=== PATIENT | female | born 1980 | race Caucasian/White ===

== ENCOUNTER 2017-08-09 15:16 | Observation (INO) | payer OTHER ==
[2017-08-09] MEDS ORDERED: Albuterol 2.5 MG/3 ML NEB.SOL* (0.083%) ONE (15:27)
[2017-08-09] MEDS ORDERED: diPHENhydraMINE IV* 50 MG/ML 1 ml VIAL (BENADRYL) ONE (15:50)
[2017-08-09] MEDS ORDERED: EPINEPHRINE 1 MG/ML 1 ML VIAL ONE (15:50)
[2017-08-09] MEDS ORDERED: methylPREDNISolone 125 MG* 2 ML VIAL ONE (15:50)
[2017-08-09] MEDS ORDERED: Famotidine IV* 10 MG/ML 2 ML (20 mg) ONE (15:50)
[2017-08-09] MEDS ORDERED: EPINEPHrine,Rac 2.25% NEB.SOL* 0.5 ML ONE (15:51)
[2017-08-09] MEDS ORDERED: methylPREDNISolone 125 MG* 2 ML VIAL IV ONE (16:41)
[2017-08-09] MEDS ORDERED: Albuterol 2.5 MG/3 ML NEB.SOL* (0.083%) INH ONE (16:41)
[2017-08-09] MEDS ORDERED: Famotidine IV* 10 MG/ML 2 ML (20 mg) IV SLOW PU ONE (16:41)
[2017-08-09] MEDS ORDERED: diPHENhydraMINE PO* 50 MG PO ONE (16:41)
[2017-08-09] MEDS ORDERED: EPINEPHrine,Rac 2.25% NEB.SOL* 0.5 ML INH ONE (16:42)
[2017-08-09] MEDS ORDERED: EPINEPHrine AMP 1 MG/ML SUBCUT ONE (16:42)
[2017-08-09] MEDS ORDERED: Acetaminophen TAB* 325 MG PO PRN (17:02)
[2017-08-09] MEDS ORDERED: diPHENhydraMINE PO* 50 MG PO PRN (17:02)
[2017-08-09] MEDS ORDERED: Albuterol 2.5 MG/3 ML NEB.SOL* (0.083%) INH PRN (17:02)
[2017-08-09] MEDS ORDERED: NS 0.9% 1000 ML* 1,000 ML IV ONE ×2 (17:02→19:22)
[2017-08-09] MEDS ORDERED: Ondansetron INJ* 2 MG/ML VIAL IV PRN (17:02)
[2017-08-09] MEDS ORDERED: NS 0.9% 1000 ML* 1,000 ML IV SCH (17:15)
[2017-08-09 17:32] LABS: ABS Basophils 0.1 10^3/ul (0-0.2); ABS Eosinophils 0.1 10^3/ul (0-0.6); ABS Lymphocytes 2.4 10^3/ul (1.0-4.8); ABS Monocytes 0.6 10^3/ul (0-0.8); ABS Neutrophils 17.1 10^3/ul (1.5-7.7); ABS Nucleated RBC 0 10^3/ul; Eosinophil % 0.4 % (0-6); Hematocrit 38 % (35-47); Hemoglobin 12.8 g/dl (12.0-16.0); Lymphocyte % 11.8 % (25-47); Mean Corpuscular HGB Conc 34 g/dl (31-36); Mean Corpuscular Hemoglobin 30 pg (27-31); Mean Corpuscular Volume 89 fL (80-97); Mean Platelet Volume 8 um3 (7.4-10.4); Nucleated Red Blood Cells % 0; Platelet Count 332 10^3/ul (150-450); Red Blood Count 4.23 10^6/ul (4.0-5.4); Red Cell Distribution Width 13 % (10.5-15); White Blood Count 20.3 10^3/ul (3.5-10.8)
[2017-08-09] MEDS: Cetirizine* 10 MG TAB PO SCH (17:34)
[2017-08-09 17:49] LABS: EGFR Non-African American 78.9 (>60)
[2017-08-09] MEDS ORDERED: LORazepam TAB(*) 0.5 MG PO ONE (20:25)
[2017-08-09] MEDS ORDERED: LORazepam INJ* 2 MG/ML 1 ML VIAL IV PUSH ONE (20:28)
[2017-08-09] MEDS ORDERED: LORazepam INJ* 2 MG/ML 1 ML VIAL ONE (20:41)
--- NOTE | 2017-08-09 20:51 | RAD ---
HISTORY: Tachycardia COMPARISONS: None VIEWS: 1: frontal portable view of the chest at 8:41 PM FINDINGS: LINES AND TUBES: None. CARDIOMEDIASTINAL SILHOUETTE: The cardiomediastinal silhouette is normal for portable technique. PLEURA: The costophrenic angles are sharp. No pleural abnormalities are noted. LUNG PARENCHYMA: The lungs are clear. ABDOMEN: The upper abdomen is clear. There is no subphrenic gas. BONES AND SOFT TISSUES: No bone or soft tissue abnormalities are noted. IMPRESSION: NO ACTIVE CARDIOPULMONARY DISEASE.
[2017-08-09] MEDS: predniSONE TAB* 20 MG PO SCH (22:35)
[2017-08-09] MEDS: Famotidine IV* 10 MG/ML 2 ML (20 mg) IV SLOW PU SCH (22:36)
[2017-08-09 23:18] LABS: Urine Appearance Clear; Urine Blood Negative (Negative); Urine Color Colorless; Urine Ketones Negative (Negative); Urine Protein Negative (Negative); Urine Specific Gravity 1.004 (1.010-1.030); Urine Urobilinogen Negative (Negative)
--- NOTE | 2017-08-09 23:55 | HP ---
CC: Dr. Mello * HISTORY AND PHYSICAL: DATE OF ADMISSION: 08/09/17 PRIMARY CARE PROVIDER: Dr. Mello. ATTENDING PHYSICIAN WHILE IN THE HOSPITAL: Dr. Martha Johnson * (report dictated by Coleman Silva NP). CHIEF COMPLAINT: 1. Allergic reaction. 2. Shortness of breath. 3. Itching in throat and mouth. HISTORY OF PRESENT ILLNESS: Mrs. Lester is a 37-year-old female patient, who really has no other medical history. She states she has a history of may be seasonal asthma. She comes into the ER today. She says that she was seen at Dr. Garcia's office for allergy testing on Thursday this past week. She was tested there. According to the patient, she had a reaction to the skin test. She was told she had high reactivity to cucumbers, green peppers, peanuts and soy. She received 4 rounds of epinephrine according to the patient. She also received prednisone and Benadryl. The reaction was abated. She was given an additional dose to take of prednisone and she was sent home and this weekend she was working on removing the offending agents that she was told that she had high sensitivity to. She today was noted to be taking a shower and right after taking the shower, she started having itchiness in the lips, in the tongue. She took a Benadryl and an inhaler 20 minutes into this sensation. She started having shortness of breath feeling like that she could not breathe. She was concerned and told her and they came into the hospital. She said she was starting having difficulty breathing. She was noticing she was starting to have a wheeze. She is not really sure what she was having the reaction to. She thinks it may have been the soap. She says the soap may have had some soy products in it. She is not 100% sure. She came into the ED. She received albuterol, epinephrine racemic epinephrine as there was concern for stridor. She got Pepcid, steroids as well and the reaction seemed to have improved significantly with these interventions. She said she is feeling better now. She denies any chest pain. She denies feeling short of breath. She denies having any palpitations. No chest pain. She said she had no recent fevers or chills and she denied having any recent vomiting or diarrhea. Because of the reaction and the fact that she had stridor, we were asked to evaluate for admission. PAST MEDICAL HISTORY: She says is significant for asthma, which is seasonal. PAST SURGICAL HISTORY: She has had eustachian tubes placed. HOME MEDICATIONS: Include: 1. Benadryl 25 mg every 6 hours as needed. 2. B12 500 mcg daily. 3. Vitamin D 1000 units p.o. daily. 4. vitamin 1 tablet p.o. daily. 5. Probiotic 1 capsule p.o. daily. ALLERGIES: Include BEES, CUCUMBERS, GREEN PEPPERS, PEANUTS and SOY. FAMILY HISTORY: Reviewed and is noncontributory. She said that her parents to her knowledge were healthy. SOCIAL HISTORY: She does not smoke. She does drink, it is occasionally. Surrogate decision maker is her . REVIEW OF SYSTEMS: There is no documented fever. She denied any significant weight change. There was no double vision, no ear discharge. She denied having any rhinorrhea. There was no sore throat. No thyroid enlargement. She denied having any chest pain. There was shortness of breath per my HPI. There was no abdominal pain, no nausea, no vomiting. There is no dysuria. There was no frequency. There was no seizure, no loss of consciousness, no pruritus and no skin ulceration. Review of 14 systems completed, all others negative. PHYSICAL EXAMINATION GENERAL: Ms. Lester is a 37-year-old female patient. She is sitting in the ED stretcher. She does not appear to be in any acute distress. She is awake and she is alert. VITAL SIGNS: Blood pressure 145/71 with a pulse of 149, respirations when she came in were 30, they are now 18. Her O2 saturations are 100%, heart rate now is still at 140 and the temperature was 99.3. HEENT: Head: Atraumatic, normocephalic. Eyes: EOMs are intact. Sclerae anicteric and not pale. Throat: Oral mucosa appears to be moist. No oropharyngeal erythema. NECK: Supple. LUNGS: Clear to auscultation bilaterally. No wheezes, rales, or rhonchi. She had no stridor. HEART: Sounds S1, S2. She is tachycardic. ABDOMEN: Soft, it was flat and nontender. Bowel sounds were present. EXTREMITIES: Pulses were 2+ throughout. She is moving all 4 extremities with 5 /5 strength. NEUROLOGIC: She is awake, alert, oriented x3. Speech is clear. Tongue midline. No gross focal deficits. SKIN: Intact. DIAGNOSTIC STUDIES/LAB DATA: Labs are pending at this point. She did have an EKG obtained today, shows a heart rate of 144. She had diffuse ST depression. No ST elevation was noted. Old medical records were reviewed. ASSESSMENT AND PLAN: Mrs. Lester is a 37-year-old female patient coming in to the ED today with complaints of lip itching and mouth itching, difficulty breathing, on evaluation concern for allergic reaction, also was found to have stridor. She will be admitted under observation status for: 1. Allergic reaction. Etiology is unclear. The exact culprit and why she had the reaction is unclear at this point. The plan would be to go ahead and continue steroids, p.r.n. Benadryl. I will put her on Pepcid. In addition to that, I will place her on Zyrtec. Should she have another reaction or recurrent stridor, I will get ENT involved and I also will give her epinephrine. We will continue to follow and she will need close followup with Dr. Garcia's office. I would like to try to get the records from Dr. Garcia's office as well to see his impression with the patient's last clinical visit. 2. Tachycardia. This is probably related to the epinephrine and racemic epinephrine given here in the ED. I am going to go ahead and hydrate the patient. I am checking a CMP. I also will get a CBC. We are checking a TSH and we will continue to follow. I do note that she had ST depression on her EKG and this is probably from the rate. She is not having any chest pain currently. So, we will go ahead and just monitor this, I am placing her in the ICU. We will follow the heart rate. 3. DVT prophylaxis. We will place her on SCDs. 4. Code status. Full code. 5. Fluids, electrolytes, and nutrition. I am ordering a clear liquid diet for the time being. TIME SPENT: Time spent on admission was 60 minutes, greater than half time was spent [id number] with the patient obtaining my history and physical, the other half time was spent going over the plan of care of the patient and implementing the plan of care. I did discuss the plan of care with my attending, Dr. Johnson, she is in agreement. COLEMAN SILVA NP [id number]/CPS #: [id number] MTDD
[2017-08-10 06:24] LABS: Hematocrit 36 % (35-47); Hemoglobin 12.8 g/dl (12.0-16.0); Mean Corpuscular HGB Conc 35 g/dl (31-36); Mean Corpuscular Hemoglobin 31 pg (27-31); Mean Corpuscular Volume 88 fL (80-97); Mean Platelet Volume 8 um3 (7.4-10.4); Platelet Count 298 10^3/ul (150-450); Red Blood Count 4.12 10^6/ul (4.0-5.4); Red Cell Distribution Width 13 % (10.5-15); White Blood Count 9.8 10^3/ul (3.5-10.8)
[2017-08-10 06:30] LABS: ABS Basophils 0.1 10^3/ul (0-0.2); ABS Eosinophils 0 10^3/ul (0-0.6); ABS Lymphocytes 0.7 10^3/ul (1.0-4.8); ABS Monocytes 0.3 10^3/ul (0-0.8); ABS Neutrophils 8.7 10^3/ul (1.5-7.7); ABS Nucleated RBC 0 10^3/ul; Eosinophil % 0 % (0-6); Lymphocyte % 7.3 % (25-47); Nucleated Red Blood Cells % 0
[2017-08-10] MEDS ORDERED: Potassium Chloride IV* 60 MEQ in NS 0.9% 500 ML* 500 ML IVPB ONE (09:00)
[2017-08-10] MEDS ORDERED: Cetirizine* 10 MG TAB PO SCH (09:00)
[2017-08-10] MEDS ORDERED: KCL 20 MEQ/100 ML IVPREMIX* 20 MEQ/100 ML BAG IV SCH (09:00)
[2017-08-10] MEDS: Famotidine IV* 10 MG/ML 2 ML (20 mg) IV SLOW PU SCH ×2 (09:20→20:38)
[2017-08-10] MEDS: Cetirizine* 10 MG TAB PO SCH (09:20)
[2017-08-10] MEDS: predniSONE TAB* 20 MG PO SCH (09:20)
[2017-08-10] MEDS ORDERED: Magnesium Sulfate 2 GM IV* 2 GM/50 ML BAG IVPB ONE ×2 (10:47→22:00)
[2017-08-10 11:30] LABS: EGFR Non-African American 94.7 (>60)
--- NOTE | 2017-08-10 12:13 | ED ---
Shelby Mendosa Jason, scribed for Casper Hardy MD on 08/09/17 at 1531 . Allergic Reaction/Systemic - HPI Summary HPI Summary: This patient is a 37 year old F presenting to [facility] with a chief complaint of allergic reaction since today. The patient states she had recently gone for allergy testing 2 days ago and was told that she is most severely allergic to soy beans and peanuts and today she accidentally used soy mon soap. Pt noted lip tingling and SOB and took 50mg Benadryl PO at 1500. She was also given prednisone for two days but did not have any for today. The patient rates the pain 0/10 in severity. Symptoms aggravated by nothing. Symptoms alleviated by nothing. Patient reports tingling lips, tongue feels funny, coughing, and wheezing. - History of Current Complaint Hx Obtained From: Patient Onset/Duration: Sudden Onset, Still Present Timing: Constant Pain Intensity: 0 Pain Scale Used: 0-10 Numeric Aggravating Factor(s): Nothing Alleviating Factor(s): Nothing Associated Signs And Symptoms: Positive: Cough Wheezing, Difficulty Breathing - Allergies/Home Medications Allergies/Adverse Reactions: Allergies Allergy/AdvReac Type Severity Reaction Status Date / Time bee pollen Allergy Anaphylatic Verified 08/09/17 15:27 Shock cucumber Allergy See Comment Verified 08/09/17 15:27 green pepper Allergy See Comment Verified 08/09/17 15:27 peanut Allergy See Comment Verified 08/09/17 15:27 soy Allergy Difficulty Verified 08/09/17 15:27 Breathing/Wheezing Home Medications: Home Medications Cholecalciferol TAB* [Vitamin D TAB*] 1,000 unit PO DAILY 08/09/17 [History Confirmed 08/09/17] Cyanocobalamin TAB* [Vitamin B12 TAB*] 500 mcg PO DAILY 08/09/17 [History Confirmed 08/09/17] L.acidoph,Paracasei, B.lactis [Probiotic] 1 each PO DAILY 08/09/17 [History Confirmed 08/09/17] Vitamin TAB* 1 tab PO DAILY 08/09/17 [History Confirmed 08/09/17] diPHENhydraMINE PO* [Benadryl PO 25 MG TAB*] 25 mg PO Q6H PRN 08/09/17 [History Confirmed 08/09/17] PMH/Surg Hx/FS Hx/Imm Hx Previously Healthy: Yes Opthamlomology History: Denies: Hx Legally Blind EENT History: Denies: Hx Deafness Infectious Disease History: No Infectious Disease History: Denies: Traveled Outside the [place] in Last 30 Days - Family History Known Family History: Negative: Blood Disorder - Social History Occupation: Employed Full-time Lives: With Family Substance Use Type: Reports: None Review of Systems ENT: Other - "tingling lips and tongue feels funny" Positive: Shortness Of Breath, Cough, Other - wheezing All Other Systems Reviewed And Are Negative: Yes Physical Exam - Summary Physical Exam Summary: Appearance: The patient is well-nourished in no acute distress and in no acute pain. Skin: The skin is warm and dry and skin color reflects adequate perfusion. HEENT: ~The head is normocephalic and atraumatic. The pupils are equal and reactive. The conjunctivae are clear and without drainage. ~Nares are patent and without drainage. Mouth reveals moist mucous membranes and the throat is without erythema and exudate. The external ears are intact. The ear canals are patent and without drainage. The tympanic membranes are intact. Neck: the neck is supple with full range of motion and non-tender. There are no carotid bruits. ~There is no neck vein distension. Slight erythema in the anterior neck. Respiratory: Chest is non-tender. Tachypnic, Expiratory wheezes, Phonate with inspiration. Cardiovascular: Tachycardic. ~There is no murmur or rub auscultated. ~There is no peripheral edema and pulses are symmetrical and equal. Abdomen: The abdomen is soft and non-tender. ~There are normal bowel sounds heard in all four quadrants and there is no organomegaly palpated. Musculoskeletal: There is no back tenderness noted. ~Extremities are non-tender with full range of motion. ~There is good capillary refill. There is no peripheral edema or calf tenderness elicited. Neurological: Patient is alert and oriented to person, place and time. ~The patient has symmetrical motor strength in all four extremities. ~Cranial nerves are grossly intact. Deep tendon reflexes are symmetrical and equal in all four extremities. Psychiatric: The patient has an appropriate affect and does not exhibit any anxiety or depression. Triage Information Reviewed: Yes Vital Signs On Initial Exam: Initial Vitals Temp Pulse Resp BP Pulse Ox 99.3 F 118 26 131/82 100 08/09/17 15:21 08/09/17 15:21 08/09/17 15:21 08/09/17 15:21 08/09/17 15:21 Vital Signs Reviewed: Yes Diagnostics - Vital Signs Vital Signs Temp Pulse Resp BP Pulse Ox 08/09/17 15:21 99.3 F 118 26 131/82 100 - Laboratory Result Diagrams: 08/10/17 05:03 08/10/17 10:45 Lab Statement: Any lab studies that have been ordered have been reviewed, and results considered in the medical decision making process. - EKG 1606 Cardiac Rate: Tachycardia EKG Rhythm: Sinus Tachycardia - 144 bpm Re-Evaluation - Re-Evaluation First Eval Re-Evaluation Time: 15:50 Change: Worse - patient's condition worsened after her symptoms returned 15 minutes following a breathing treatment. The patient was given a breathing treatment. Second Eval Re-Evaluation Time: 16:05 Change: Improved - the patient is calm and there is no wheezing or stridor. Patient is tachycardic Allergic Reaction Course/Dx - Course Course Of Treatment: Ms. Lester presented feeling SOB and that her throat was closing off and itching. She saw Dr. Garcia two days ago for skin testing for allergies and apparently reacted to different things. According to her and her , she had to be given epi three times and one of them was a double dose. She was also given steroids and D/C'd with an additional dose of prednisone which she took yesterday. She tried to get all the wheat and soy products out of the house but after she took a shower today, she started to have an itchy throat and noted that the shampoo had soy in it. She started to get SOB and they came in after taking a benadryl. When I saw her she was very anxious, clawing at her throat and phonating with inspirations and expirations. She clearly had some expiratory wheezes but I was not convicned that she had stridor. I gave her an albuterol neb which helped but shortly after, it recurred. She was then given epi SQ, vaponephrine, and IV pepcid, benadryl and solumedrol. During the second attack, her heart rate was in the 170s (after albuterol) and after the second attack, she improved and felt better and her heart rate decreased to the 130s. At that point, I could not hear wheezes or stridor even with significant intakes of breath. I'm not sure how much of this was physiologic (clearly some) and how much was her anxiety about it. I asked the hospitalists to evaluate her for observation. - Diagnoses Provider Diagnoses: Allergic reaction - Provider Notifications Discussed Care Of Patient With: Jordan Jackson - discussed patient's condition Time Discussed With Above Provider: 16:21 - Critical Care Time Critical Care Time: 30-74 min Discharge - Discharge Plan Condition: Fair Disposition: ADMITTED TO [facility] Discharge Disposition Comment: Pt was admitted by Dr. Johnson The documentation as recorded by the Shelby hickman Jason accurately reflects the service I personally performed and the decisions made by me, Casper Hardy MD.
[2017-08-10] MEDS ORDERED: Potassium Chloride IV* 20 MEQ in NS 0.9% 100 ML* 100 ML IVPB ONE (15:00)
--- NOTE | 2017-08-10 15:57 | PN ---
Subjective Date of Service: 08/10/17 Interval History: Tmax 101.4 Transferred out of ICU. tachycardia persists. electrolytes repleted. diet advanced. no lip or tongue swelling. no wheezing. recent outpatient work up for autoimmune/connective tissue disorders after developed hexagonal raised rash on back of b/l thighs Tachycardic to 130s with ambulation and light headed. leukocytosis resolved. Denies dysuria, frequency, SOB. Objective Active Medications: Acetaminophen (Tylenol Tab*) 650 mg PO Q4H PRN PRN Reason: FEVER/PAIN Last Admin: 08/09/17 20:31 Dose: 650 mg Albuterol (Ventolin 2.5 Mg/3 Ml Neb.[place]*) 2.5 mg INH Q2H PRN PRN Reason: SOB/WHEEZING Cetirizine HCl (Zyrtec*) 10 mg PO DAILY [facility] PRN Reason: Protocol Last Admin: 08/10/17 09:20 Dose: 10 mg Diphenhydramine HCl (Benadryl Po*) 50 mg PO Q6H PRN PRN Reason: ITCHING Last Admin: 08/10/17 04:02 Dose: 50 mg Famotidine (Pepcid Iv*) 20 mg IV SLOW PU BID [facility] Last Admin: 08/10/17 09:20 Dose: 20 mg Sodium Chloride (Ns 0.9% 1000 Ml*) 1,000 mls @ 125 mls/hr IV PER RATE [facility] Last Admin: 08/09/17 18:04 Dose: 125 mls/hr Potassium Chloride 20 meq/ (Sodium Chloride) 110 mls @ 55 mls/hr IVPB ONCE ONE Stop: 08/10/17 16:59 Ondansetron HCl (Zofran Inj*) 4 mg IV Q6H PRN PRN Reason: NAUSEA Prednisone (Deltasone Tab*) 60 mg PO DAILY [facility] Last Admin: 08/10/17 09:20 Dose: 60 mg Vital Signs - 8 hr 08/10/17 08/10/17 08/10/17 08:00 08:15 08:30 Temperature Pulse Rate 104 105 127 Respiratory 20 23 17 Rate Blood Pressure 113/69 109/71 121/67 (mmHg) O2 Sat by Pulse 97 97 97 Oximetry 08/10/17 08/10/17 08/10/17 08:45 09:00 09:16 Temperature Pulse Rate 101 124 104 Respiratory 25 20 19 Rate Blood Pressure 109/62 110/69 112/71 (mmHg) O2 Sat by Pulse 97 98 98 Oximetry 08/10/17 08/10/17 08/10/17 09:31 09:45 10:00 Temperature Pulse Rate 107 111 Respiratory 15 18 19 Rate Blood Pressure 129/76 109/81 (mmHg) O2 Sat by Pulse 98 98 Oximetry 08/10/17 08/10/17 08/10/17 10:30 10:31 14:46 Temperature 98.6 F 98.6 F 98.5 F Pulse Rate 112 120 108 Respiratory 16 16 Rate Blood Pressure 125/86 125/96 114/72 (mmHg) O2 Sat by Pulse 100 98 99 Oximetry 08/10/17 14:47 Temperature Pulse Rate 106 Respiratory Rate Blood Pressure 114/77 (mmHg) O2 Sat by Pulse Oximetry Oxygen Devices in Use Now: None Appearance: NAD, sitting up in hospital bed. Eyes: No Scleral Icterus, PERRLA Ears/Nose/Mouth/Throat: NL Teeth, Lips, Gums, Mucous Membranes Moist Neck: NL Appearance and Movements; NL JVP Respiratory: Symmetrical Chest Expansion and Respiratory Effort, Clear to Auscultation Cardiovascular: NL Sounds; No Murmurs; No JVD, - - tachycardic Abdominal: NL Sounds; No Tenderness; No Distention Extremities: No Edema, No Clubbing, Cyanosis Skin: No Rash or Ulcers, No Nodules or Sclerosis Neurological: Alert and Oriented x 3, NL Sensation, NL Muscle Strength and Tone Nutrition: Taking PO's Result Diagrams: 08/10/17 05:03 08/10/17 10:45 Additional Lab and Data: Laboratory Results - last 24 hr 08/09/17 08/09/17 08/09/17 17:20 17:20 21:27 WBC 20.3 H RBC 4.23 Hgb 12.8 Hct 38 MCV 89 MCH 30 MCHC 34 RDW 13 Plt Count 332 MPV 8 Neut % (Auto) 84.3 H Lymph % (Auto) 11.8 L [place] % (Auto) 3.0 Eos % (Auto) 0.4 Baso % (Auto) 0.5 Absolute Neuts (auto) 17.1 H Absolute Lymphs (auto) 2.4 Absolute Monos (auto) 0.6 Absolute Eos (auto) 0.1 Absolute Basos (auto) 0.1 Absolute Nucleated RBC 0 Nucleated RBC % 0 ESR Sodium 137 Potassium 2.8 L Chloride 106 Carbon Dioxide 18 L Anion Gap 13 H BUN 14 Creatinine 0.82 Est GFR ( Amer) 101.4 Est GFR (Non-Af Amer) 78.9 BUN/Creatinine Ratio 17.1 Glucose 279 H POC Glucose (mg/dL) Hemoglobin A1c Lactic Acid Calcium 8.2 L Magnesium Total Bilirubin 0.30 AST 13 ALT 10 Alkaline Phosphatase 42 Troponin I 0.00 0.01 C-Reactive Protein Total Protein 6.2 L Albumin 3.9 Globulin 2.3 Albumin/Globulin Ratio 1.7 Procalcitonin TSH 1.29 Beta HCG, Quant 1.23 Urine Color Urine Appearance Urine pH Ur Specific [place] Urine Protein Urine Ketones Urine Blood Urine Nitrate Urine Bilirubin Urine Urobilinogen Ur Leukocyte Esterase Urine Glucose Influenza A (Rapid) Influenza B (Rapid) 08/09/17 08/09/17 08/09/17 22:00 22:14 23:38 WBC RBC Hgb Hct MCV MCH MCHC RDW Plt Count MPV Neut % (Auto) Lymph % (Auto) [place] % (Auto) Eos % (Auto) Baso % (Auto) Absolute Neuts (auto) Absolute Lymphs (auto) Absolute Monos (auto) Absolute Eos (auto) Absolute Basos (auto) Absolute Nucleated RBC Nucleated RBC % ESR Sodium Potassium Chloride Carbon Dioxide Anion Gap BUN Creatinine Est GFR ( Amer) Est GFR (Non-Af Amer) BUN/Creatinine Ratio Glucose POC Glucose (mg/dL) Hemoglobin A1c Lactic Acid Calcium Magnesium Total Bilirubin AST ALT Alkaline Phosphatase Troponin I 0.01 C-Reactive Protein Total Protein Albumin Globulin Albumin/Globulin Ratio Procalcitonin TSH Beta HCG, Quant Urine Color Colorless Urine Appearance Clear Urine pH 7.0 Ur Specific [place] 1.004 L Urine Protein Negative Urine Ketones Negative Urine Blood Negative Urine Nitrate Negative Urine Bilirubin Negative Urine Urobilinogen Negative Ur Leukocyte Esterase Negative Urine Glucose Negative Influenza A (Rapid) Negative Influenza B (Rapid) Negative 08/10/17 08/10/17 08/10/17 00:10 00:10 00:10 WBC RBC Hgb Hct MCV MCH MCHC RDW Plt Count MPV Neut % (Auto) Lymph % (Auto) [place] % (Auto) Eos % (Auto) Baso % (Auto) Absolute Neuts (auto) Absolute Lymphs (auto) Absolute Monos (auto) Absolute Eos (auto) Absolute Basos (auto) Absolute Nucleated RBC Nucleated RBC % ESR Sodium Potassium Chloride Carbon Dioxide Anion Gap BUN Creatinine Est GFR ( Amer) Est GFR (Non-Af Amer) BUN/Creatinine Ratio Glucose POC Glucose (mg/dL) Hemoglobin A1c Lactic Acid 2.0 Calcium Magnesium 1.8 L Total Bilirubin AST ALT Alkaline Phosphatase Troponin I C-Reactive Protein Total Protein Albumin Globulin Albumin/Globulin Ratio Procalcitonin 0.5 TSH Beta HCG, Quant Urine Color Urine Appearance Urine pH Ur Specific [place] Urine Protein Urine Ketones Urine Blood Urine Nitrate Urine Bilirubin Urine Urobilinogen Ur Leukocyte Esterase Urine Glucose Influenza A (Rapid) Influenza B (Rapid) 08/10/17 08/10/17 08/10/17 05:03 10:45 10:45 WBC 9.8 RBC 4.12 Hgb 12.8 Hct 36 MCV 88 MCH 31 MCHC 35 RDW 13 Plt Count 298 MPV 8 Neut % (Auto) 88.6 H Lymph % (Auto) 7.3 L [place] % (Auto) 3.2 Eos % (Auto) 0 Baso % (Auto) 0.9 Absolute Neuts (auto) 8.7 H Absolute Lymphs (auto) 0.7 L Absolute Monos (auto) 0.3 Absolute Eos (auto) 0 Absolute Basos (auto) 0.1 Absolute Nucleated RBC 0 Nucleated RBC % 0 ESR 9 Sodium 136 Potassium 3.7 Chloride 107 Carbon Dioxide 21 L Anion Gap 8 BUN 6 Creatinine 0.70 Est GFR ( Amer) 121.8 Est GFR (Non-Af Amer) 94.7 BUN/Creatinine Ratio 8.6 Glucose 117 H POC Glucose (mg/dL) Hemoglobin A1c Lactic Acid Calcium 9.1 Magnesium Total Bilirubin AST ALT Alkaline Phosphatase Troponin I C-Reactive Protein 1.36 Total Protein Albumin Globulin Albumin/Globulin Ratio Procalcitonin TSH Beta HCG, Quant Urine Color Urine Appearance Urine pH Ur Specific [place] Urine Protein Urine Ketones Urine Blood Urine Nitrate Urine Bilirubin Urine Urobilinogen Ur Leukocyte Esterase Urine Glucose Influenza A (Rapid) Influenza B (Rapid) 08/10/17 08/10/17 10:45 11:32 WBC RBC Hgb Hct MCV MCH MCHC RDW Plt Count MPV Neut % (Auto) Lymph % (Auto) [place] % (Auto) Eos % (Auto) Baso % (Auto) Absolute Neuts (auto) Absolute Lymphs (auto) Absolute Monos (auto) Absolute Eos (auto) Absolute Basos (auto) Absolute Nucleated RBC Nucleated RBC % ESR Sodium Potassium Chloride Carbon Dioxide Anion Gap BUN Creatinine Est GFR ( Amer) Est GFR (Non-Af Amer) BUN/Creatinine Ratio Glucose POC Glucose (mg/dL) 88 Hemoglobin A1c 5.3 Lactic Acid Calcium Magnesium Total Bilirubin AST ALT Alkaline Phosphatase Troponin I C-Reactive Protein Total Protein Albumin Globulin Albumin/Globulin Ratio Procalcitonin TSH Beta HCG, Quant Urine Color Urine Appearance Urine pH Ur Specific [place] Urine Protein Urine Ketones Urine Blood Urine Nitrate Urine Bilirubin Urine Urobilinogen Ur Leukocyte Esterase Urine Glucose Influenza A (Rapid) Influenza B (Rapid) Microbiology and Other Data: Microbiology 08/09/17 18:00 Nasal Screen MRSA (PCR)(KULDIP) - Final Nasal Mrsa Not Detected 08/09/17 22:00 Influenza Types A,B Antigen (KULDIP) - Final Nasopharyngeal Specimen received for Influenza A/B Molecular testing Assess/Plan/Problems-Billing Assessment: 37 yo female PMH anxiety (no meds), recent (May 17) empric lyme dz tx w/ 3 weeks doxy for swollen joints, fevers, chills; hexagonal back of legs rash 2 weeks ago, with anapylaxis during allergy testing s/p 4 epi. Recurrent angioedema after hot shower 2 days later. s/p racemic epi, H2 blockers. Tachycardia. swelling resolved. - Patient Problems (1) Anaphylactic reaction Current Visit: Yes Status: Acute Code(s): T78.2XXA - ANAPHYLACTIC SHOCK, UNSPECIFIED, INITIAL ENCOUNTER SNOMED Code(s): 26127111 Comment: s/p racemic epinephrine in ED. angioedema/stridor has resolved. precipitant warm shower. continue pepcid, certrizine on prednisone 60mg daily has epi pens (2 new, 2 older) at home. Hx of bee sting swelling whole right arm at age 11 tryptase send out was drawn on 08/08/17 is vegetarian and the foods she is tested positive to such as soy, peanut, green pepper, cucumber have always been well tolerated, soy in particular is a staple for her. f/u w/ Dr. Sanchez. (2) Sinus tachycardia Current Visit: Yes Status: Acute Code(s): R00.0 - TACHYCARDIA, UNSPECIFIED SNOMED Code(s): 98757315 Comment: 110s at rest. 130s with ambulation with light headedness Orthostatics wnl lytes repleted. IVF epinephrine likely contributed initially. (3) History of joint swelling Current Visit: Yes Status: Acute Code(s): Z87.39 - PERSONAL HISTORY OF DISEASES OF THE MS SYS AND CONN TISS SNOMED Code(s): 691689936 Comment: also hexagonal rash behind legs two weeks ago. PCP Sanford Mello has initiated an autoimmune and connective tissue disease work-up reportedly. labs and results unknown. ESR and CRP wnl denies malar rash, brittle hair or family hx of SLE denies asthma, nasal polyps. Does get very frequent colds/sore throat/PAUL. gets joint pains in knees and elbows s/p empiric lyme dz tx in May. doxy 3 weeks. outdoors a lot. previously lived in [place]. Denies specific target lesions. tested recently(pending) (4) Leukocytosis Current Visit: Yes Status: Acute Code(s): D72.829 - ELEVATED WHITE BLOOD CELL COUNT, UNSPECIFIED SNOMED Code(s): 206392327 Comment: resolved. did get total 14 tabs (unknown mg) of steroid w/ Dr. Garcia on 08/07. (5) Hypokalemia Current Visit: Yes Status: Acute Code(s): E87.6 - HYPOKALEMIA SNOMED Code( s): 67115258 Comment: improving. replete to >4. (6) Hyperglycemia Current Visit: Yes Status: Acute Code(s): R73.9 - HYPERGLYCEMIA, UNSPECIFIED SNOMED Code(s): 07366752 Comment: BG on admission 279. no Hx DM. A1C drawn atn 5.3. Status and Disposition: medicine observation, if stays night then inpatient.
[2017-08-10] MEDS ORDERED: NS 0.9% 500 ML* 500 ML IV ONE (17:48)
[2017-08-11 07:28] VITALS: BP 105/63
[2017-08-11] MEDS: Cetirizine* 10 MG TAB PO SCH (07:51)
[2017-08-11] MEDS: predniSONE TAB* 20 MG PO SCH (07:51)
[2017-08-11] MEDS: Famotidine IV* 10 MG/ML 2 ML (20 mg) IV SLOW PU SCH (07:51)
--- NOTE | 2017-08-12 02:56 | DS ---
DISCHARGE SUMMARY: DATE OF ADMISSION: 08/09/17 DATE OF DISCHARGE: 08/11/17 PROVIDER: Medardo Silva NP ATTENDING PHYSICIAN: Catalino Hunter MD PRIMARY CARE PROVIDER: Sanford Mello MD PRIMARY HVAC R INSTRUCTOR: Dr. Rodríguez Garcia. CHIEF COMPLAINT: Shortness of breath, wheezing, itching in throat and mouth. PRINCIPAL DIAGNOSIS: Angioedema/anaphylaxis (biphasic response). HISTORY OF PRESENT ILLNESS/HOSPITAL COURSE: Teodora Lester is a 37-year-old female with past medical history of anxiety (on no medications), recent workup for connective tissue/autoimmune disease given intermittent joint swelling, rash that had about 2 weeks prior to admission and then resolved, history of intermittent fevers and chills for which she was empirically treated for Lyme disease 4 months ago. She had as part of her workup gone to allergy testing with Dr. Garcia on 08/07/17, and near the end of that test, she developed an anaphylactic reaction for which she got epinephrine first two and then needed one and then additional one more for total, she got prednisone total 14 tabs of unknown strength in the office and Benadryl. She felt improved a day after, but on second day when taking a hot shower, she started developing itchiness in her lips and tongue. She took Benadryl, but started to feel like she could not breathe. In the emergency room, she was noticed to have wheezing and she was given racemic epinephrine, albuterol and Pepcid, steroids. She was tachycardic to the 130s, was monitored in the ICU overnight that first day of admission, downgraded the next day of the hospital on regular floor, where she was ambulated but still tachycardic up to the 130s and lightheaded. She was hypokalemic, hyperglycemic. The hyperglycemia resolved. Her magnesium and potassium were repleted and she was given fluid resuscitation. She had CRP and ESR, which were within normal limits. She is being discharged to follow up with Dr. Sanford Mello to follow up on her biphasic response of the anaphylaxis reaction, which can happen up to 72 hours later along with followup on the labs that were recently drawn for rule out autoimmune versus connective tissue disease. She also has scheduled followup on 09/02/[address] Rodríguez Garcia to discuss her allergy and anaphylaxis. DISCHARGE MEDICATIONS: Include: 1. Cholecalciferol 1000 units p.o. daily. 2. Vitamin B12 500 mcg p.o. daily. 3. Probiotic p.o. daily 1 tab. 4. vitamin p.o. daily. 5. Cetirizine 10 mg p.o. daily for 5 tabs versus continuation of her Benadryl 500 mg p.o. q.6 hours p.r.n. until followup with Dr. Mello. DISCHARGE DIET: No restrictions other than avoidance of cucumber, green pepper , peanut, and soy products until she can follow up with Dr. Rodríguez Garcia. Of note, she has tolerated all of these foods without incident for most of her life. ACTIVITY: No restrictions. FOLLOWUP: Please follow up with Dr. Sanford Mello and Dr. Rodríguez Garcia the latter of which was arranged already on 09/02/[address] Mello, she will be seeing within 3 to 5 days of discharge. TIME SPENT: Time spent on discharge 35 minutes. [id number]/[facility] #: [id number] [place]
== END 2017-08-11 10:38 | disposition home or self-care (01) ==
LOC: ED 15:16 → ICU 16:59 → INTOOBSV 16:59 → ICU 22:21 → MEDTELE 08-10 09:56
PROVIDERS: ADMIT Pediatrics; ATTEND Internal Medicine
DX: T78.3XXA Angioneurotic edema, initial encounter (principal); T78.2XXA Anaphylactic shock, unspecified, initial encounter; R05 Cough; R06.2 Wheezing; R06.02 Shortness of breath; R00.0 Tachycardia, unspecified; Z87.39 Personal history of other diseases of the musculoskeletal system and connective tissue; D72.829 Elevated white blood cell count, unspecified; E87.6 Hypokalemia; R73.9 Hyperglycemia, unspecified
CPT/HCPCS: 36415; 71045; 80048; 80053; 81003; 83036; 83605; 83735; 84145; 84443; 84484; 84702; 85025; 85652; 86140; 87040; 87502; 87641; 93005; 94640; 96374; 99285; A9270-GY; G0378; J0171; J1200; J2060; J2930; J3475; J3480; J7512

== ENCOUNTER 2017-08-11 13:52 | Observation (INO) | payer OTHER ==
[2017-08-11] MEDS ORDERED: methylPREDNISolone 125 MG* 2 ML VIAL ONE (14:07)
[2017-08-11] MEDS ORDERED: diPHENhydraMINE IV* 50 MG/ML 1 ml VIAL (BENADRYL) ONE (14:07)
[2017-08-11] MEDS ORDERED: Famotidine IV* 10 MG/ML 2 ML (20 mg) ONE (14:07)
[2017-08-11] MEDS ORDERED: EPINEPHrine AMP 1 MG/ML IM ONE (14:19)
[2017-08-11] MEDS ORDERED: diPHENhydraMINE IV* 50 MG/ML 1 ml VIAL (BENADRYL) SLOW PUSH ONE (14:19)
[2017-08-11] MEDS ORDERED: NS 0.9% 1000 ML* 1,000 ML IV ONE (14:19)
[2017-08-11] MEDS ORDERED: Famotidine IV* 10 MG/ML 2 ML (20 mg) IV SLOW PU ONE (14:19)
[2017-08-11] MEDS ORDERED: LORazepam INJ* 2 MG/ML 1 ML VIAL IV PUSH ONE (14:21)
[2017-08-11] MEDS ORDERED: LORazepam INJ* 2 MG/ML 1 ML VIAL IV PUSH PRN ×2 (14:40→19:43)
[2017-08-11] MEDS ORDERED: methylPREDNISolone 125 MG* 2 ML VIAL IV ONE (14:54)
[2017-08-11] MEDS ORDERED: Albuterol 2.5 MG/3 ML NEB.SOL* (0.083%) INH PRN (14:56)
[2017-08-11] MEDS ORDERED: NS 0.9% 1000 ML* 1,000 ML IV SCH (15:00)
[2017-08-11 15:45] LABS: Hematocrit 41 % (35-47); Hemoglobin 13.5 g/dl (12.0-16.0); Mean Corpuscular HGB Conc 33 g/dl (31-36); Mean Corpuscular Hemoglobin 31 pg (27-31); Mean Corpuscular Volume 92 fL (80-97); Mean Platelet Volume 9 um3 (7.4-10.4); Platelet Count 307 10^3/ul (150-450); Red Blood Count 4.44 10^6/ul (4.0-5.4); Red Cell Distribution Width 13 % (10.5-15); White Blood Count 11.4 10^3/ul (3.5-10.8)
[2017-08-11 16:02] LABS: EGFR Non-African American 84.8 (>60)
[2017-08-11] MEDS: Famotidine TAB* 20 MG PO SCH (20:11)
[2017-08-11] MEDS: diPHENhydraMINE PO* 50 MG PO SCH (20:11)
--- NOTE | 2017-08-11 22:21 | HP ---
HISTORY AND PHYSICAL: DATE OF ADMISSION: 08/11/17 ADMITTING PROVIDER: Catalino Hunter MD PRIMARY CARE PROVIDER: Dr. Mello. CHIEF COMPLAINT: Shortness of breath, wheezing, tingling in lips. 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 Rodríguez Garcia's office about 10 minutes after having histamine, positive control, skin prick test placed, she developed shortness of breath, wheezing, sensation of tingling in her lips and tongue. She got epinephrine 4 total shots. She got Benadryl and then 11 tabs of prednisone of unknown quantity. She was then sent home and felt better the next day; but on 08/09/17, after taking a hot shower, she started developing the same sensations and was referred to the emergency room, where she again was wheezing, short of breath and was given racemic epinephrine as there was concern for stridor. She got Pepcid, steroids. She was admitted to the ICU for observation. She had significant sinus tachycardia. She had hypokalemia and hypomagnesia, which were corrected and she was feeling better by the same morning of admission and discharged on 08/10/17. She was discharged on Zyrtec and had been getting prednisone in the hospital. She took another hot shower around 11 am, had some Triscuits to eat at noon and then was sitting discussing her hospitalization with her therapist around 1 p.m. when she felt that her tongue and lips were starting to itch. She came back to the [facility], was noted to be in fair respiratory distress with audible wheezing and retractions. Per ER physician report by Dr. Nguyễn, no notable stridor was auscultated. She was given epinephrine shot along with Benadryl, Pepcid and Solu-Medrol. She was referred again to the hospitalist service for admission for anaphylaxis versus panic attack versus paradoxical vocal cord dysfunction in the setting of panic or anxiety attack. After above medications , the patient is feeling improved. Initially her heart rate was in the 160s, currently in the 120s to 130s. Labs are pending. 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 PAST SURGICAL HISTORY: Status post eustachian tubes. HOME MEDICATIONS: 1. Vitamin B12 500 mcg daily. 2. Vitamin D 1000 units p.o. daily. 3. vitamin 1 tab p.o. daily. 4. Probiotic 1 capsule p.o. daily. 5. Cetirizine 10 mg p.o. daily. ALLERGIES: Include BEE, POLLEN, CUCUMBER, GREEN PEPPER, PEANUTS, SOY. Of note , these last 4 food allergens were discovered on 08/07/17, though she has been a vegetarian all her life and has had no issues with these in the past. FAMILY HISTORY: No significant illness in mother or father. SOCIAL HISTORY: Nonsmoker, occasional drinker. Surrogate decision maker is her , who is at bedside, Neeraj Méndez. REVIEW OF SYSTEMS: A complete 14-point review of systems was negative except as per HPI. She denies any headache, abdominal pain, nausea, vomiting, rashes. She does attest to sensation now of "hives" inside her mouth, which are new. PHYSICAL EXAMINATION GENERAL APPEARANCE: Initially in extremis with audible wheezing, retractions, panic look on her face, currently more relaxed. No acute distress. VITAL SIGNS: Currently blood pressure 138/74, satting 100% on room air. Respiratory rate between 15 and 28. Pulse rate as high as 160, currently 129. Temperature 100.3 initially, now 99.7. HEENT: Normocephalic, atraumatic. Pupils equal, round, and reactive to light. Extraocular motions are intact. No appreciable lip swelling, tongue swelling. Mild erythema at the posterior oropharynx. No observed hives or other changes. No stridor appreciated. NECK: Supple. No cervical lymphadenopathy. No oropharynx lesions. PULMONARY: Initially expiratory wheezing diffusely, now clear to auscultation bilaterally with no wheezing, rales or rhonchi. CARDIAC: Regular rate, tachycardic. No murmurs, rubs or gallops. ABDOMEN: Soft, nontender, nondistended. EXTREMITIES: Warm, well perfused, no peripheral edema. SKIN: No lesions, no rashes. NEUROLOGIC: Cranial nerves II through XII intact. Moving all extremities. LABORATORY DATA: Pending. EKG showed sinus tachycardia, rate of 141. Normal axis, normal intervals, T wave inversion in III, no ST changes. T-wave inversion present prior. ASSESSMENT AND PLAN: Teodora Lester is a 37-year-old female with past medical history of anxiety and now presenting for the third time with wheezing, potential stridor, tongue and lip itching, which was concerning for anaphylaxis , although other etiologies must now also be entertained. Dr. Nguyễn got a hold of Dr. Jackson of ENT who will stop by the hospital later today to look at her vocal cord and other upper airway to see if there is any evidence of swelling. Potential other etiologies include paradoxical vocal cord syndrome and panic attack. We will treat her for recurrent anaphylaxis with monitoring in the ICU ,getting Benadryl 50 mg q.6 hours scheduled, Pepcid 20 mg b.i.d., cetirizine 10 mg daily, she is status post Solu-Medrol 120 mg here, continue 1 mcg/kg daily. We are going to give Ativan 1 mg IV push every 6 hours as needed. She is getting a bolus of normal saline here and we will start a 150 cc an hour for the next 16 hours, potentially another bolus as well. A tryptase level was added along with the complement C1q, C1 esterase inhibitor function and inhibitor level as per ENT recommendation. She is being monitored for need for more epinephrine in the ICU being admitted to observation status, she is a full code. She can eat a vegetarian diet with the above food restrictions noted. Her medical surrogate is Neeraj Méndez. [id number]/[facility] #: [id number] [facility]
--- NOTE | 2017-08-12 01:15 | CONS ---
CONSULTATION REPORT: DATE OF CONSULT: 08/11/17 For the hospitalist service. BRIEF HISTORY: This is a pleasant 37-year-old female presenting to ER several times this week with symptoms of wheezing, shortness of breath, and suspicion of possible reaction, possible anaphylaxis. She is being presently worked up for allergies including with a recent skin testing. Her main symptoms were shortness of breath and wheezing and feeling of lightheadedness. She did describe some symptoms of tingling of her lips and mouth, although she did not identify any areas of swelling. She did not have any hoarseness, although she did seem to think that there was some difficulty with breathing and possibly some concern about the airway with stridor. She did not again had any change in her voice. She has no prior history of asthma. She is taking a bronchodilator, has taken Benadryl, and has had several courses of epinephrine, which had relieved some of her symptoms. PHYSICAL EXAM: The ear canals are clear. Facial skin is normal. Nasal cavity is unremarkable. The oral cavity, oropharynx is unremarkable. PROCEDURE: Flexible laryngoscopy was then carried out after getting the patient 's consent. Entering the right naris, the nasopharynx was noted to be normal. Hypopharynx and larynx were normal. Laryngeal was normal. Pharyngeal mucosa was normal without evidence of any edema. Epiglottis, tongue base were clear. Lateral pharyngeal tatum were clear. CLINICAL IMPRESSION: The patient with what sounds like possibly allergic anaphylaxis-type reaction, although certainly other pathologies can be possible. I do not see any evidence of laryngeal edema and certainly no evidence of any sequelae of angioedema. At this point, I do not see any airway issues that warrant intervention of any sort. She will continue her investigation for possible allergic reaction, possible anaphylaxis. Thanks for allowing me to see this patient. [id number]/[facility] #: [id number] [facility]OSPITALJessika
[2017-08-12] MEDS: diPHENhydraMINE PO* 50 MG PO SCH ×2 (03:53→08:25)
[2017-08-12] MEDS: Famotidine TAB* 20 MG PO SCH (08:26)
[2017-08-12] MEDS ORDERED: Cetirizine* 10 MG TAB PO SCH (09:00)
[2017-08-12] MEDS ORDERED: predniSONE TAB* 20 MG PO SCH (09:00)
[2017-08-12] MEDS ORDERED: methylPREDNISolone 125 MG* 2 ML VIAL IV SCH (09:00)
[2017-08-12] MEDS ORDERED: NS 0.9% 1000 ML* 500 ML IV ONE (10:00)
[2017-08-12 10:32] LABS: ABS Basophils 0 10^3/ul (0-0.2); ABS Eosinophils 0 10^3/ul (0-0.6); ABS Lymphocytes 2.6 10^3/ul (1.0-4.8); ABS Monocytes 0.7 10^3/ul (0-0.8); ABS Neutrophils 9.9 10^3/ul (1.5-7.7); ABS Nucleated RBC 0 10^3/ul; Eosinophil % 0.1 % (0-6); Hematocrit 41 % (35-47); Hemoglobin 13.7 g/dl (12.0-16.0); Lymphocyte % 19.4 % (25-47); Mean Corpuscular HGB Conc 34 g/dl (31-36); Mean Corpuscular Hemoglobin 30 pg (27-31); Mean Corpuscular Volume 89 fL (80-97); Mean Platelet Volume 9 um3 (7.4-10.4); Nucleated Red Blood Cells % 0; Platelet Count 313 10^3/ul (150-450); Red Blood Count 4.56 10^6/ul (4.0-5.4); Red Cell Distribution Width 13 % (10.5-15); White Blood Count 13.2 10^3/ul (3.5-10.8)
[2017-08-12 10:54] LABS: EGFR Non-African American 81.2 (>60)
[2017-08-12] MEDS ORDERED: Magnesium Oxide TAB* 400 MG PO SCH (11:00)
[2017-08-12] MEDS: Potassium Chlor TAB* 20 MEQ TAB.ER PO SCH ×2 (11:21→13:05)
[2017-08-12] MEDS ORDERED: Acetaminophen TAB* 325 MG PO PRN (11:26)
[2017-08-12 15:16] VITALS: BP 120/71
[2017-08-12] MEDS ORDERED: NS 0.9% 1000 ML* 1,000 ML IV ONE (16:02)
--- NOTE | 2017-08-13 17:35 | DS ---
DISCHARGE SUMMARY: DATE OF ADMISSION: 08/11/17 DATE OF DISCHARGE: 08/12/17 ADMITTING/ATTENDING PROVIDER: Catalino Hunter MD PRIMARY CARE PHYSICIAN: Sanford Mello MD CHIEF COMPLAINT: Severe shortness of breath and wheezing with tingling in lips. PRINCIPAL DIAGNOSIS: Differential includes recurrent anaphylaxis (third episode versus paradoxical vocal fold motion/anxiety attack). HISTORY OF PRESENT ILLNESS AND HOSPITAL COURSE: Teodora Lester is a 37-year- old female with past medical history of anxiety, on no previous medications, and recent initiation of a connective tissue and autoimmune disease workup when she developed a macular rash on the back to her thigh 2 weeks prior to admission. During this workup, she had skin prick allergy testing with Dr. Rodríguez Garcia on 08/07/17, and developed what was suspected to be an anaphylactic reaction after the histamine positive control injection. She got a total of 4 shots of epinephrine, Benadryl, and several tabs unknown total of steroids. She had gone home, but 2 days later after taking a hot shower, she started developing itchiness in her lips and tongue, took Benadryl, but still felt like she had trouble with breathing and presented to the emergency room where she was given racemic epi, albuterol, Pepcid, steroids, and then started on Zyrtec as well. She had been tachycardic to the 130s and monitored in the ICU overnight before being downgraded. She had done well with some improving tachycardia and by hospital day #3 the morning thereof, she was discharged. She had gone home, took in a hot shower, had eaten some triscuits around noon and then was discussing her hospitalization with her therapist around 1 p.m. when she started to feel that her tongue and lips were starting to itch and tingle again. She re-presented to the emergency room and by that time was in a fair amount of respiratory distress with audible wheezing, retractions. Dr. Nguyễn evaluated her, he did not appreciate evidence of stridor on auscultation per verbal report. She was given again epinephrine x1 along with Benadryl, 125 mg of Solu- Medrol, Pepcid, and again admitted to the ICU for further airway watch and monitoring. Initial heart rates right before the initiation of medications were in the 160s to even 170s. ENT was consulted as there was notably no visible swelling of the lips or tongue and no visual skin changes, At that time, Dr. Green performed a flexible laryngoscopy procedure while she was in the ICU and there was no evidence of edema of the pharyngeal mucosa and no laryngeal edema. The patient was wanting to leave the hospital at that point feeling that she was not getting enough sleep during the last few days. Some of the medications were making her feel somewhat disoriented at times, a compromise was established and she was transferred to the regular medicine floor where more privacy could be obtained. A tryptase level was obtained and eventually with result at 2.6, well below the upper limit normal of 11.5, the previous drawn, 08/08/17, notably the day after her initial anaphylaxis was also a result of 3.3, also within normal limits. She had a C1 esterase inhibitor level of 33 mg/dL within the normal range and a C1q component of 17 mg/dL, also within the normal range. The C1 esterase inhibitor function test is still pending upon discharge. She had electrolytes replaced and IV fluids were administered in drip and bolus form with improvement in her heart rate. By hospital day #2, she was again very eager for discharge, so that she could get home to recuperate with plan to follow up with Dr. Rodríguez Garcia. Notably, the prior admission had included an ESR and CRP that were within normal limits. A complement C3, complement C4 and antinuclear antibody were drawn, but still pending at the time of discharge. She was notably again concerned about feeling altered to some respect and the Benadryl, which had been 50 mg q.6 hours standing was held after the morning dose given hospital day #2 and the patient seemed to have clearing of the sensorium and she was not discharged on Benadryl, but rather Pepcid and cetirizine. She was also discharged on prednisone per Dr. Rodríguez Garcia's initial recommendations. However, it should be noted that it is not entirely clear that anaphylactic reaction is the etiology of these wheezing attacks, as paradoxical vocal fold motion is certainly within the differential. In this respect, she was also given a prescription for Ativan p.r.n. that she can trial if she starts getting a sensation of tingling or anxiety. The patient had a very faint macular rash barely perceptible on her legs, hospital day #2 for which she states is similar to the rash that initiated this entire autoimmune connective tissue allergy testing workup. DISCHARGE MEDICATIONS: Include: 1. Albuterol HFA inhaler 2 puffs inhaled q.4 hours p.r.n. (refilled old that had been close to running out). 2. Cetirizine 10 mg p.o. daily, of note started on last discharge. 3. Cholecalciferol 1000 units p.o. daily. 4. Cyanocobalamin 500 mcg p.o. daily. 5. Famotidine 20 mg p.o. b.i.d. (new probiotic daily). 6. Ativan 1 mg p.o. q.6 hours p.r.n. for 12 tabs. 7. Prednisone 60 mg daily for 5 days or until she can follow up with Dr. Garcia for further recommendations. 8. vitamin tab 1 tab p.o. daily. DISCHARGE DIET: She is a vegetarian and has had skin testing, positive for ____ __ peanut, and soy, though has tolerated all of these her entire adult life. She should avoid them until discussing with Dr. Garcia. ACTIVITY LEVEL: No restrictions. Advised to keep well hydrated and rest for the next few days. FOLLOWUP: Please follow up with Dr. Sanford Mello within 3 days of [address] and Dr. Rodríguez Garcia within 1 to 2 days of discharge. TIME SPENT: On discharge, 40 minutes. [id number]/[facility] #: [id number] MTDD
== END 2017-08-12 18:08 | disposition home or self-care (01) ==
LOC: ED 13:52 → ICU 14:34 → MEDTELE 23:00
PROVIDERS: ADMIT Internal Medicine; ATTEND Internal Medicine
PROC: 0CJS8ZZ Inspection of Larynx, Via Natural or Artificial Opening Endoscopic (ICD-10-PCS; principal; 2017-08-11)
DX: R06.02 Shortness of breath (principal); R20.2 Paresthesia of skin; R06.2 Wheezing; Z79.899 Other long term (current) drug therapy; R00.0 Tachycardia, unspecified
CPT/HCPCS: 36415; 80048; 80053; 83520; 83735; 83883; 84484; 85025; 85027; 86038; 86160; 93005; 96361; 96374; 96376; 99283; A9270-GY; G0378; J0171; J1200; J2060; J2930; J7512

== ENCOUNTER 2017-11-25 21:56 | Emergency (ER) | payer OTHER ==
[2017-11-25] MEDS ORDERED: EPINEPHrine,Rac 2.25% NEB.SOL* 0.5 ML INH ONE (22:04)
[2017-11-25] MEDS ORDERED: diPHENhydraMINE IV* 50 MG/ML 1 ml VIAL (BENADRYL) IV ONE (22:10)
[2017-11-25] MEDS ORDERED: Famotidine IV* 10 MG/ML 2 ML (20 mg) IV SLOW PU ONE (22:10)
[2017-11-25] MEDS ORDERED: LORazepam INJ* 2 MG/ML 1 ML VIAL IV PUSH ONE (22:10)
[2017-11-25] MEDS ORDERED: methylPREDNISolone 125 MG* 2 ML VIAL IV ONE (22:10)
[2017-11-25] MEDS ORDERED: EPINEPHRINE 1 MG/ML 1 ML VIAL ONE (22:11)
[2017-11-25] MEDS ORDERED: NS 0.9% 1000 ML* 1,000 ML IV ONE (22:11)
[2017-11-25] MEDS ORDERED: EPINEPHrine AMP 1 MG/ML IM ONE (22:12)
[2017-11-25 22:34] LABS: Hematocrit 40 % (35-47); Hemoglobin 13.6 g/dl (12.0-16.0); Mean Corpuscular HGB Conc 34 g/dl (31-36); Mean Corpuscular Hemoglobin 30 pg (27-31); Mean Corpuscular Volume 90 fL (80-97); Platelet Count 337 10^3/ul (150-450); Red Blood Count 4.49 10^6/ul (4.00-5.40); Red Cell Distribution Width 13 % (10.5-15); White Blood Count 18.2 10^3/ul (3.5-10.8)
[2017-11-25 22:53] LABS: EGFR Non-African American 68.2 (>60)
[2017-11-25 23:26] LABS: ABS Basophils 0.1 10^3/ul (0-0.2); ABS Eosinophils 1.3 10^3/ul (0-0.6); ABS Lymphocytes 9.5 10^3/ul (1.0-4.8); ABS Monocytes 1.9 10^3/ul (0-0.8); ABS Neutrophils 5.3 10^3/ul (1.5-7.7); ABS Nucleated RBC 0 10^3/ul; Eosinophil % 7.3 % (0-6); Lymphocyte % 52.1 % (25-47); Nucleated Red Blood Cells % 0.1
[2017-11-25 23:53] VITALS: BP 118/70
--- NOTE | 2017-11-26 05:18 | ED ---
Agnes Mendosa Jade, scribed for Miguel Aaron MD on 11/25/17 at 2221 . Allergic Reaction/Systemic - HPI Summary HPI Summary: Pt is a 37 y/o female who presents to the ED c/o respiratory distress. Earlier today she had a minor allergic reaction to an unknown cause, and took Albuterol and 3 24-hour Benadryls. 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 Pt also c/o itchiness, coughing, SOB, wheezing, and voice changes. She has a PMHx of allergic reactions. 2 months ago , the pt was hospitalized for 3 days for a similar episode, including respiratory distress and tachycardia. As per , pt did not use an EpiPen, and is hesitant due given her tachycardia. Pt has known allergies to bee pollen , cucumber, green pepper, peanut, and soy. Over the past day, she has been newly exposed to different cats and supplements recommended by her doctor, as per . Pt had a bad reaction to the allergy skin test itself performed by her icu rn. No PMHx of HTN or DM. Pt denies smoking. No FHx of similar allergic reactions. She states her grey stock recorder is ruling out a possible autoimmune disorder due to her weird pattern of inflammation. - History of Current Complaint Hx Obtained From: Patient, Family/Side Framer - Onset/Duration: Sudden Onset, Started minutes ago - 9:40, Worse Since Timing: Constant Character: Swelling, Pruritus Aggravating Factor(s): Other - Unknown allergen Alleviating Factor(s): Epinephrine Associated Signs And Symptoms: Positive: Cough Wheezing, Difficulty Breathing, Rash, Throat Tightening. Negative: Diaphoresis, Nausea, Vomiting - Allergies/Home Medications Allergies/Adverse Reactions: Allergies Allergy/AdvReac Type Severity Reaction Status Date / Time bee pollen Allergy Anaphylatic Verified 11/25/17 22:29 Shock cucumber Allergy See Comment Verified 11/25/17 22:29 green pepper Allergy See Comment Verified 11/25/17 22:29 peanut Allergy See Comment Verified 11/25/17 22:29 soy Allergy Difficulty Verified 11/25/17 22:29 Breathing/Wheezing PMH/Surg Hx/FS Hx/Imm Hx Cardiovascular History: Reports: Hx Hypotension Respiratory History: Reports: Hx Asthma, Hx Seasonal Allergies, Other Respiratory Problems/Disorders - Acute respiratory distress (allergic reaction) Denies: Hx Chronic Obstructive Pulmonary Disease (COPD) GI History: Reports: Other GI Disorders - GI upset with food allergies History: Reports: Other Problems/Disorders - recent UTI Musculoskeletal History: Comment Only: Other Musculoskeletal History - Having inflammatory muscle and joint problems Sensory History: Reports: Hx Contacts or Glasses Denies: Hx Legally Blind, Hx Deafness, Hx Hearing Aid Opthamlomology History: Reports: Hx Contacts or Glasses Denies: Hx Legally Blind Neurological History: Reports: Hx Migraine - While she was a teen, Hx Seizures - vagal seizures, one 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/02/16, neg work up Psychiatric History: Reports: Hx Anxiety, Hx Depression, Hx Post Traumatic Stress Disorder - anxiety - Surgical History Surgery Procedure, Year, and Place: Tubes in ears while a child Infectious Disease History: Denies: Traveled Outside the [place] in Last 30 Days - Family History Known Family History: Negative: Blood Disorder, Other - Severe allergies - Social History Alcohol Use: Weekly Substance Use Type: Reports: None Smoking Status (MU): Former Smoker Type: Cigarettes Have You Smoked in the Last Year: No Review of Systems Negative: Skin Diaphoresis ENT: Other - Throat closed Positive: Other - Fast heart rate Positive: Shortness Of Breath, Cough Negative: Vomiting, Nausea Skin: Other - Itchiness Positive: Rash - Hives - face and throat All Other Systems Reviewed And Are Negative: Yes Physical Exam - Summary Physical Exam Summary: Appearance: Well appearing, no pain distress Skin: warm, dry, reflects adequate perfusion Head/face: normal Eyes: EOMI, LENA ENT: normal. No uvular edema. No lip, tongue, or cheek swelling. Neck: supple, non-tender Respiratory: breath sounds present, stridor in pharyngeal region. Repetitive coughing. Cardiovascular: pulses symmetrical, tachycardic Abdomen: non-tender, soft Bowel Sounds: present Musculoskeletal: normal, strength/ROM intact Neuro: normal, sensory motor intact, A&Ox3 Triage Information Reviewed: Yes Vital Signs On Initial Exam: Initial Vitals Pulse Resp Pulse Ox 113 18 100 11/25/17 22:07 11/25/17 22:07 11/25/17 22:07 Vital Signs Reviewed: Yes Diagnostics - Vital Signs Vital Signs Pulse Resp Pulse Ox 11/25/17 22:07 113 18 100 - Laboratory Lab Results: Lab Results 11/25/17 11/25/17 Range/Units 22:26 22:26 WBC 18.2 H (3.5-10.8) 10^3/ul RBC 4.49 (4.00-5.40) 10^6/ul Hgb 13.6 (12.0-16.0) g/dl Hct 40 (35-47) % MCV 90 (80-97) fL MCH 30 (27-31) pg MCHC 34 (31-36) g/dl RDW 13 (10.5-15) % Plt Count 337 (150-450) 10^3/ul MPV 9.0 (7.4-10.4) um3 Neut % (Auto) 29.3 L (38-83) % Lymph % (Auto) 52.1 H (25-47) % [place] % (Auto) 10.6 H (0-7) % Eos % (Auto) 7.3 H (0-6) % Baso % (Auto) 0.7 (0-2) % Absolute Neuts (auto) 5.3 (1.5-7.7) 10^3/ul Absolute Lymphs (auto) 9.5 H (1.0-4.8) 10^3/ul Absolute Monos (auto) 1.9 H (0-0.8) 10^3/ul Absolute Eos (auto) 1.3 H (0-0.6) 10^3/ul Absolute Basos (auto) 0.1 (0-0.2) 10^3/ul Absolute Nucleated RBC 0 10^3/ul Nucleated RBC % 0.1 Hem Pathologist Commnt Pending Sodium 136 (135-145) mmol/L Potassium 2.4 L* (3.5-5.0) mmol/L Chloride 104 (101-111) mmol/L Carbon Dioxide 16 L (22-32) mmol/L Anion Gap 16 H (2-11) mmol/L BUN 9 (6-24) mg/dL Creatinine 0.93 (0.51-0.95) mg/dL Est GFR ( Amer) 82.5 (>60) Est GFR (Non-Af Amer) 68.2 (>60) BUN/Creatinine Ratio 9.7 (8-20) Glucose 254 H (70-100) mg/dL Calcium 8.7 (8.6-10.3) mg/dL Beta HCG, Quant < 0.60 mIU/mL Result Diagrams: 11/25/17 22:26 11/25/17 22:26 Lab Statement: Any lab studies that have been ordered have been reviewed, and results considered in the medical decision making process. Re-Evaluation - Re-Evaluation First Eval Re-Evaluation Time: 22:36 Change: Improved Comment: Pt is doing much better. Second Eval Re-Evaluation Time: 23:09 Change: Improved Comment: Pt feels much better and wants to go home. She is still tachycardic, but is not having any other symptoms. Allergic Reaction Course/Dx - Course Course Of Treatment: She with a history of anaphylaxis and multiple allergies. This not clear exactly what may have precipitated today's events. She had no hives present on arrival here but was said to have had them at home. She presented with stridor and respiratory difficulty/cough. Quickly improved with intramuscular epinephrine, nebulized racemic epinephrine, IV Pepcid/Benadryl and steroids. She was watched for 2 hours with no rebound and symptoms. She did remain tachycardic which is been a problem for her after receiving epinephrine in the past. She was offered admission and refused. She will follow up closely with her icu rn on discharge. She does have an EpiPen and is encouraged to use it for severe symptoms such as tonight. - Diagnoses Differential Diagnosis/HQI/PQRI: Positive: Other - Angioedema, anaphylaxis, laryngospasm/vocal cord dysfunction, anxiety reaction Provider Diagnoses: Anaphylaxis - Critical Care Time Critical Care Time: 30-74 min - CCT is EXCLUSIVE of separately billable procedures. Discharge - Sign-Out/Discharge Documenting (check all that apply): Discharge/Admit/Transfer - Discharge - Discharge Plan Condition: Improved Disposition: HOME Prescriptions: Famotidine TAB* [Pepcid 20 MG TAB*] 20 mg PO BID PRN #60 tab PRN Reason: Allergy Symptoms predniSONE TAB* [Deltasone TAB*] 50 mg PO DAILY #3 tab Patient Education Materials: Anaphylaxis (ED) Referrals: Sanford Mello MD [Primary Care Provider] - Additional Instructions: Call your icu rn first thing in the morning to follow-up. Drink plenty of fluids. Return with any severe allergy symptoms, worse, new symptoms or other concerns. Always use your EpiPen should you have severe allergy symptoms and go immediately to the ER. - Billing Disposition and Condition Condition: IMPROVED Disposition: Home The documentation as recorded by the Agnes hickman Jade accurately reflects the service I personally performed and the decisions made by me, Miguel Aaron MD.
== END 2017-11-25 23:52 | disposition home or self-care (01) ==
LOC: ED 21:56
DX: T78.2XXA Anaphylactic shock, unspecified, initial encounter (principal); Z87.891 Personal history of nicotine dependence
CPT/HCPCS: 36415; 80048; 84702; 85025; 85060; 96372; 96374; 96375; 99284; A9270-GY; J0171; J1200; J2060; J2930

== ENCOUNTER 2017-12-22 12:36 | Emergency (ER) | payer OTHER ==
[2017-12-22] MEDS ORDERED: Albuterol 2.5 MG/3 ML NEB.SOL* (0.083%) INH ONE (12:57)
[2017-12-22] MEDS ORDERED: methylPREDNISolone 125 MG* 2 ML VIAL IM ONE (12:57)
--- NOTE | 2017-12-22 13:11 | UC ---
Shortness of Breath HPI - HPI Summary HPI Summary: Started feeling tight last night. This morning developed worsening sensation of shortness of breath and wheezing. Has a history of asthma and anxiety. Is currently on a prednisone taper from an anaphylactic reaction 2-3 weeks ago. Is currently taking 5 mg every other day. Used albuterol inhaler 2 times this morning without much help. Denies fever, chest pain, nausea. Nose is slightly congested. - History of Current Complaint Chief Complaint: UCRespiratory Stated Complaint: SOB ASTHMA ATTACK Time Seen by Provider: 12/22/17 12:44 Hx Obtained From: Patient, Family/Jumpbasting Collar Baster - Onset/Duration: Gradual Onset, Lasting Hours, Still Present Current Severity: Moderate Dyspnea At: Rest Aggrevating Factors: Nothing Alleviating Factors: Nothing Associated Signs & Symptoms: Positive: Cough (Nonproductive), Wheezing, Nasal Congestion. Negative: Fever, Diaphoresis - Allergy/Home Medications Allergies/Adverse Reactions: Allergies Allergy/AdvReac Type Severity Reaction Status Date / Time bee pollen Allergy Anaphylatic Verified 11/25/17 22:29 Shock cucumber Allergy See Comment Verified 11/25/17 22:29 green pepper Allergy See Comment Verified 11/25/17 22:29 peanut Allergy See Comment Verified 11/25/17 22:29 soy Allergy Difficulty Verified 11/25/17 22:29 Breathing/Wheezing Home Medications: Home Medications predniSONE TAB* [Deltasone TAB*] 5 mg PO DAILY 12/22/17 [History Confirmed 12/22] PMH/Surg Hx/FS Hx/Imm Hx Respiratory History: Asthma Psychological History: Anxiety - Surgical History Surgical History: Yes Surgery Procedure, Year, and Place: eustachian tube insertion when child - Family History Known Family History: Positive: Hypertension Negative: Blood Disorder, Other - Severe allergies - Social History Alcohol Use: Weekly Substance Use Type: None Smoking Status (MU): Former Smoker Type: Cigarettes Have You Smoked in the Last Year: No When Did the Patient Quit Smoking/Using Tobacco: 1997 - Immunization History Most Recent Influenza Vaccination: n/a Most Recent Pneumonia Vaccination: N/A Review of Systems Constitutional: Negative Respiratory: Shortness Of Breath, Cough, Other - WHEEZE Cardiovascular: Negative Gastrointestinal: Negative Psychological: Anxious All Other Systems Reviewed And Are Negative: Yes Physical Exam Triage Information Reviewed: Yes Appearance: No Pain Distress, Well-Nourished, Other: - ANXIOUS APPEARING Vital Signs: Initial Vital Signs Temp 99.3 F 12/22/17 12:47 Pulse 145 12/22/17 12:47 Resp 28 12/22/17 12:47 BP 157/74 12/22/17 12:47 Pulse Ox 100 12/22/17 12:47 Vital Signs Reviewed: Yes Eyes: Positive: Conjunctiva Clear ENT: Positive: Hearing grossly normal Respiratory: Positive: Respiratory distress - BREATHING HEAVILY, Wheezing - MILD WHEEZING UPPER LOBES BILATERALLY. Negative: Crackles, Rhonchi, Stridor Cardiovascular: Positive: Tachycardia Abdomen Description: Positive: Soft Musculoskeletal: Positive: No Edema Neurological: Positive: Alert Psychological: Positive: Normal Response To Family, Age Appropriate Behavior Skin: Negative: rashes Re-Evaluation - Re-Evaluation First Eval Re-Evaluation Time: 13:40 - BREATHING MUCH EASIER AFTER 125MG SOLUMEDROL AND ALBUTEROL NEB. HR IMPROVED TO 116. WHEEZE RESOLVED. FEELS READY FOR D/C Change: Improved Shortness of Breath Dx - Differential Dx/Diagnosis Provider Diagnoses: ASTHMA EXACERBATION Discharge - Sign-Out/Discharge Documenting (check all that apply): Patient Departure - Discharge Plan Condition: Stable Disposition: HOME Prescriptions: Albuterol 2.5MG/3ML (0.083%)* [Ventolin 2.5 MG/3 ML NEB.JESSICA*] 2.5 mg INH Q4H PRN #1 box PRN Reason: Wheezing Nebulizer [Mini Plus Nebulizer] 1 each MC Q4H PRN #1 each PRN Reason: Shortness Of Breath Patient Education Materials: Asthma (ED) Referrals: Sanford Mello MD [Primary Care Provider] - If Needed Additional Instructions: YOU RECEIVED 125 MG OF SOLU-MEDROL INTRAMUSCULARLY TODAY WELL AN ALBUTEROL NEBULIZER TREATMENT WITH IMPROVEMENT OF YOUR SYMPTOMS. PRESCRIPTION SENT FOR NEBULIZER AND ALBUTEROL NEBS FOR YOU TO USE EVERY 4 HOURS NEEDED. CONTINUE TO TAKE YOUR PREDNISONE PRESCRIBED WELL YOUR PEPCID AND ANTIHISTAMINES. GO TO THE ED WITHOUT FAIL IF YOU DEVELOP RECURRENT SHORTNESS OF BREATH, WHEEZE OR OTHER CONCERNING SYMPTOMS SUCH CHEST PAIN, NAUSEA, DIZZINESS. MONITOR YOUR HEART RATE AT HOME AND IF SUSTAINED OVER 100 BPM OVER THE NEXT COUPLE OF DAYS SEEK FOLLOW-UP IN THE ED OR WITH YOUR PCP. YOUR BLOOD PRESSURE WAS ELEVATED TODAY (157/74). THIS MAY BE DUE TO YOUR ACUTE CONDITION. MONITOR AND FOLLOW-UP WITH YOUR PCP WITHIN 4 WEEKS IF IT HAS NOT RETURNED TO NORMAL. - Billing Disposition and Condition Condition: STABLE Disposition: Home
[2017-12-22 13:54] VITALS: BP 128/68
== END 2017-12-22 14:30 | disposition home or self-care (01) ==
LOC: UCEAST 12:36
DX: J45.901 Unspecified asthma with (acute) exacerbation (principal); Z91.018 Allergy to other foods; Z91.010 Allergy to peanuts; Z91.030 Bee allergy status; Z87.891 Personal history of nicotine dependence
CPT/HCPCS: 96372; 99213; G0463; J2930

== ENCOUNTER 2018-08-20 16:07 | Day surgery (SDC) | payer OTHER ==
[~2018-08-20 16:07] MED LIST: Buffered Lidocaine 1% SYRIN* 1 ML/SYRINGE INTRADERM ONE; Lactated Ringers 1000 ML Bag* 1,000 ML IV SCH
[2018-08-20] MEDS ORDERED: Propofol* 10 MG/ML 20 ML BTL ONE ×2 (16:34→17:49)
[2018-08-20] MEDS ORDERED: Lidocaine 2% PF * 5 ML VIAL ONE (16:34)
[2018-08-20] MEDS ORDERED: Midazolam* 1 MG/ML 2 ML VIAL (2 MG) ONE (16:36)
[2018-08-20] MEDS ORDERED: fentaNYL* 50 MCG/ML 2 ML VIAL (100 MCG VIAL) ONE ×3 (16:36→19:03)
[2018-08-20] MEDS ORDERED: Acetaminophen TAB* 325 MG PO PRN (16:44)
[2018-08-20] MEDS ORDERED: Naloxone* 0.4 MG/ML 1 ML VIAL IV PRN (16:44)
[2018-08-20] MEDS ORDERED: DiMENhydriNATE IV* 50 MG/ML VIAL IV PUSH PRN (16:44)
[2018-08-20] MEDS ORDERED: oxyCODONE TAB* 5 MG TAB PO PRN (16:44)
[2018-08-20] MEDS ORDERED: Propofol* 500 MG/50 ML BTL ONE (17:25)
[2018-08-20] MEDS ORDERED: EPHEDrine (Pressors)* 50 MG/ML VIAL ONE (17:46)
[2018-08-20] MEDS ORDERED: Rocuronium* 10 MG/ML VIAL ONE (17:57)
[2018-08-20] MEDS ORDERED: Sugammadex * 200 MG/2 ML VIAL IV PUSH ONE (17:58)
[2018-08-20] MEDS ORDERED: Sugammadex * 500 MG/5 ML VIAL IV PUSH ONE (18:22)
[2018-08-20] MEDS ORDERED: Ketorolac INJ* 30 MG/ML 1 ML VIAL ONE (18:32)
[2018-08-20] MEDS: fentaNYL* 50 MCG/ML 2 ML VIAL (100 MCG VIAL) IV PRN ×3 (18:38→19:05)
[2018-08-20] MEDS ORDERED: Acetaminophen TAB* 325 MG ONE (19:03)
[2018-08-20 20:13] VITALS: BP 106/68
--- NOTE | 2018-08-23 09:41 | OP ---
OPERATIVE REPORT: DATE OF OPERATION: 08/20/18 DATE OF : 82. SURGEON: Derrick Casas MD HARVE[employer] SUPERVISOR: None. ANESTHESIA: General anesthetic with endotracheal intubation. PRE-OP DIAGNOSIS: Incomplete in the first trimester after an attempted medical . POST-OP DIAGNOSIS: Incomplete in the first trimester after an attempted medical . OPERATIVE PROCEDURE: Dilation and evacuation with suction curettage, no products of conception. ESTIMATED BLOOD LOSS: Minimal, less than 10 cc. SPECIMEN SENT TO PATHOLOGY: Endometrial curettings. FLUIDS: She received 700 cc of IV crystalloid fluid. OUTPUT: Her urine output was 100 cc of clear urine. FINDINGS: The patient was noted to have a cervix which was about 0.5 cm dilated. The uterus now soun ded to 9 cm and in anteverted position and there were moderate amounts of products of conception corinna karolina during the procedure. DESCRIPTION OF PROCEDURE: The patient was taken to the operating room where she was identified. She was placed on the operating table where a general anesthetic with endotracheal intubation was obtain ed without difficulty. She was then placed in the dorsal lithotomy position, prepped and draped in a normal sterile fashion. Attention was then brought onto the patient's perineum, where the bladder wa s catheterized with a straight cath and drained of clear urine. A weighted speculum was then inserte d into the patient's vagina. The cervix was identified and grasped with a single-tooth tenaculum. I t was noted to be about 0.5 cm dilated. The cervix was then further dilated using Hegar dilators. T he uterus was sounded to 9 cm in an anteverted position and through the cervix, an 8 mm curved suctio n curette was introduced. The curette was then attached to suction tubing and a suction curettage wa s performed. Once the uterus was deemed to be empty from the suction curettage, the suction curette was removed from the patient's uterus and a sharp curettage was performed confirming complete of the endometrial cavity. At this point, all the instruments were removed from the patient's vagina . Sponge, lap, and needle counts were correct x2. The patient was then transferred to recovery room area in stable condition. [id number]/[facility] #: [id number]
== END 2018-08-20 20:17 | disposition home or self-care (01) ==
LOC: OR 16:07
PROVIDERS: ATTEND Obstetrics & Gynecology
DX: O03.39 Incomplete spontaneous abortion with other complications (principal); F41.8 Other specified anxiety disorders; J45.909 Unspecified asthma, uncomplicated
CPT/HCPCS: 81229; 88305; A9270-GY; J1885; J2250; J2704; J3010

== ENCOUNTER 2018-11-14 16:18 | Emergency (ER) | payer OTHER ==
[2018-11-14] MEDS ORDERED: diPHENhydraMINE IV* 50 MG/ML 1 ml VIAL (BENADRYL) IV ONE (16:24)
[2018-11-14] MEDS ORDERED: EPINEPHrine,Rac 2.25% NEB.SOL* 0.5 ML ONE (16:24)
[2018-11-14] MEDS ORDERED: EPINEPHrine,Rac 2.25% NEB.SOL* 0.5 ML INH ONE (16:24)
[2018-11-14] MEDS ORDERED: Famotidine IV* 10 MG/ML 2 ML (20 mg) IV SLOW PU ONE (16:25)
[2018-11-14] MEDS ORDERED: Famotidine IV* 10 MG/ML 2 ML (20 mg) ONE (16:26)
[2018-11-14] MEDS ORDERED: diPHENhydraMINE MDV* 50 MG/ML VIAL ONE (16:26)
--- NOTE | 2018-11-14 16:30 | ED ---
Allergic Reaction/Systemic - HPI Summary HPI Summary: The patient is a 38 y/o F presenting to [facility] accompanied by with a chief complaint of sudden onset allergic reaction while eating today. She is allergic to cucumber, green pepper, peanut, and soy, and she was likely exposed. She has symptoms of diffuse erythematous rash with pruritus and sensation of throat tightening with difficulty breathing. Her symptoms are currently rated 4/10 in severity. She reports that she is allergic to Epinephrine and Prednisone because they cause her to be tachycardic in the 140s- 150s, but she is able to have racemic Epinephrine. She has taken two allergy medications, but she hasn't taken Benadryl. The last time she had an allergic reaction was approximately a year ago. 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 Hx of hypotension, asthma, seizure. Former smoker, weekly EtOH, no substance use. - History of Current Complaint Chief Complaint: EDAllergicReaction Hx Obtained From: Patient Onset/Duration: Sudden Onset, Started minutes ago, Still Present Timing: Lasting Minutes Severity Initially: Moderate Severity Currently: Moderate Pain Intensity: 4 Pain Scale Used: 0-10 Numeric Location: Diffuse Character: Pruritus Aggravating Factor(s): Nothing Alleviating Factor(s): Nothing Associated Signs And Symptoms: Positive: Difficulty Breathing, Rash - erythematous with pruritus, Throat Tightening - Related Hx Possible Reaction To: Food Prior Episode Dx as Allergic Reaction to: Same/Other: soy, peanut - Allergies/Home Medications Allergies/Adverse Reactions: Allergies Allergy/AdvReac Type Severity Reaction Status Date / Time cucumber Allergy See Comment Verified 11/14/18 16:26 green pepper Allergy See Comment Verified 11/14/18 16:26 peanut Allergy See Comment Verified 11/14/18 16:26 soy Allergy Difficulty Verified 11/14/18 16:26 Breathing/Wheezing Bee Stings Allergy Severe Anaphylatic Uncoded 08/20/18 16:30 Shock PMH/Surg Hx/FS Hx/Imm Hx Endocrine/Hematology History: Denies: Hx Diabetes Cardiovascular History: Reports: Hx Hypotension, Other Cardiovascular Problems/ Disorders - Tacycardia when on prednisone Denies: Hx Hypercholesterolemia, Hx Hypertension Respiratory History: Reports: Hx Asthma, Hx Seasonal Allergies, Other Respiratory Problems/Disorders - Acute respiratory distress (allergic reaction) Denies: Hx Chronic Obstructive Pulmonary Disease (COPD) GI History: Reports: Other GI Disorders - GI upset with food allergies History: Reports: Other Problems/Disorders - recent UTI Musculoskeletal History: Comment Only: Other Musculoskeletal History - Having inflammatory muscle and joint problems Sensory History: Reports: Hx Contacts or Glasses Denies: Hx Legally Blind, Hx Deafness, Hx Hearing Aid Opthamlomology History: Reports: Hx Contacts or Glasses Denies: Hx Legally Blind Neurological History: Reports: Hx Migraine - While she was a teen, Hx Seizures - vagal seizures, one 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/02/16, neg work up Denies: Other Neuro Impairments/Disorders Psychiatric History: Reports: Hx Anxiety, Hx Depression, Hx Post Traumatic Stress Disorder - anxiety - Surgical History Surgery Procedure, Year, and Place: eustachian tube insertion when child Hx Anesthesia Reactions: No Infectious Disease History: No Infectious Disease History: Denies: Traveled Outside the [place] in Last 30 Days - Family History Known Family History: Positive: Hypertension Negative: Blood Disorder, Other - Severe allergies - Social History Alcohol Use: Weekly Alcohol Amount: 1-2 per week Substance Use Type: Reports: None Substance Use Comment - Amount & Last Used: not since 2007 Smoking Status (MU): Former Smoker Type: Cigarettes Have You Smoked in the Last Year: No Review of Systems Positive: Other - throat tightening sensation with difficulty swallowing Positive: Rash - erythema, Other - pruritus All Other Systems Reviewed And Are Negative: Yes Physical Exam - Summary Physical Exam Summary: VITAL SIGNS: Reviewed. GENERAL: Patient is a well-developed and nourished female who is anxiously lying in the stretcher. Patient is not in mild acute respiratory distress. HEAD AND FACE: No signs of trauma. No ecchymosis, hematomas or skull depressions. No sinus tenderness. EYES: PERRLA, EOMI x 2, No injected conjunctiva, no nystagmus. EARS: Hearing grossly intact. Ear canals and tympanic membranes are within normal limits. MOUTH: Dry oral mucosa but oropharynx is otherwise within normal limits. NECK: Supple, trachea is midline, no adenopathy, no JVD, no carotid bruit, no c- spine tenderness, neck with full ROM. CHEST: Symmetric, no tenderness at palpation LUNGS: Clear to auscultation bilaterally. No wheezing or crackles. CVS: Tachycardic, S1 and S2 present, no murmurs or gallops appreciated. ABDOMEN: Soft, non-tender. No signs of distention. No rebound no guarding, and no masses palpated. Bowel sounds are normal. EXTREMITIES: FROM in all major joints, no edema, no cyanosis or clubbing. NEURO: Alert and oriented x 3. No acute neurological deficits. Speech is normal and follows commands. SKIN: Erythematous patches with hives. Dry and warm. Triage Information Reviewed: Yes Vital Signs On Initial Exam: Initial Vitals Temp Pulse Resp BP Pulse Ox 97.9 F 159 22 119/97 99 11/14/18 16:24 11/14/18 16:24 11/14/18 16:24 11/14/18 16:24 11/14/18 16:24 Vital Signs Reviewed: Yes Diagnostics - Vital Signs Vital Signs Temp Pulse Resp BP Pulse Ox 11/14/18 16:24 97.9 F 159 22 119/97 99 - Laboratory Lab Statement: Any lab studies that have been ordered have been reviewed, and results considered in the medical decision making process. Re-Evaluation - Re-Evaluation First Eval Re-Evaluation Time: 16:48 Change: Improved Comment: The patient's symptoms are improving, and she is feeling better. Second Eval Re-Evaluation Time: 18:17 Change: Improved Comment: She is feeling much better. Allergic Reaction Course/Dx - Course Assessment/Plan: The patient is a 38 y/o F presenting to [facility] accompanied by with a chief complaint of sudden onset allergic reaction while eating today. She is allergic to cucumber, green pepper, peanut, and soy, and she was likely exposed. She has symptoms of diffuse erythematous rash with pruritus and sensation of throat tightening with difficulty breathing. Her symptoms are currently rated 4/10 in severity. She reports that she is allergic to Epinephrine and Prednisone because they cause her to be tachycardic in the 140s- 150s, but she is able to have racemic Epinephrine. She has taken two allergy medications, but she hasn't taken Benadryl. The last time she had an allergic reaction was approximately a year ago. 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 Hx of hypotension, asthma, seizure. Former smoker, weekly EtOH, no substance use. In the ED course, the patient was immediately placed in a cardiac specialist, IV access was obtained and the patient was given racemic epinephrine, Benadryl and Pepcid. The patient refused Decadron, Solu-Medro, and IM epinephrine since she reports that she has allergic reactions to these medications. The patient also was given IV fluids and the patient seems to be getting better. She reports no shortness of breath, denies any feeling like her throat is closing; there is no swelling of the throat, no swelling of the tongue or swelling of the lips. She continues to have slight itching but is much improved. The patient is developing tachycardic to 130 bpm therefore I will order another pack of fluids and at this point the patient will be signed out to Dr. Blanco for further workup and management. The patient will be reassessed, and if the symptoms are improved and the heart rate is also in the normal limits as well as the blood pressure and the patient will be discharged home with follow-up with the primary care physician. In the ED course the patient was immediately placed in a cardiac specialist, IV access was obtained and the patient was given racemic epinephrine, Benadryl and Pepcid. The patient refused Decadron of Solu- Medrol and IM epinephrine since she reports that she has allergic reactions to these medications. The patient also was given IV fluids and the patient seems to be getting better. She reports no shortness of breath, denies any feeling like her throat is closing, there is no swelling of the throat, no swelling of the tongue or swelling of the lips. She continues to have slight itching but is much improved. The patient is developing tachycardic to 130 bpm therefore I will order another pack of fluids and at this point the patient will be signed out to Dr. Blanco for further workup and management. The patient will be reassessed, and if the symptoms are improved and the heart rate is also in the normal limits as well as the blood pressure and the patient will be discharged home with follow-up with the primary care physician. - Diagnoses Provider Diagnoses: Allergic reaction Discharge - Sign-Out/Discharge Documenting (check all that apply): Sign-Out Patient Signing out patient TO: Ashley Blanco - Patient is a sign-out to Dr. Blanco at change of shift at 1900 on 11/14/2018 pending observation. Patient Received Moderate/Deep Sedation with Procedure: No - Discharge Plan Condition: Stable Disposition: HOME Patient Education Materials: Food Allergy (ED) Referrals: Sanford Mello MD [Primary Care Provider] - 3 Days Additional Instructions: Please take medications as prescribed. Follow up with your primary care provider in 2-3 days. RETURN TO THE EMERGENCY DEPARTMENT FOR ANY NEW OR WORSENING SYMPTOMS. - Billing Disposition and Condition Condition: STABLE Disposition: Home - Attestation Statements Document Initiated by Rg: Yes Documenting Scribe: Sabine Anderson Provider For Whom Rg is Documenting (Include Credential): Dr. Hamzah Nair MD Scribe Attestation: Sabine Mendosa scribed for Dr. Hamzah Nair MD on 11/14/18 at 1905. Scribe Documentation Reviewed: Yes Provider Attestation: The documentation as recorded by the Sabine hickman accurately reflects the service I personally performed and the decisions made by me, Dr. Hamzah Nair MD Status of Scribe Document: Viewed
[2018-11-14] MEDS ORDERED: NS 0.9% 1000 ML** 1,000 ML IV ONE (18:19)
--- NOTE | 2018-11-14 19:21 | ED ---
Progress - Progress Note Progress Note: Patient is received as a sign out from Dr. Nair to Dr. Blanco at 1900 11/14/18 shift change. Patient had an allergic reaction today, patient received as a sign -out for further management and pending disposition. 1946 - Patient is hemodynamically stable and wants to go home. Patient will be discharged to home and follow up with PCP within three days. Re-Evaluation - Re-Evaluation First Eval Re-Evaluation Time: 19:47 Change: Improved Comment: 1946 - Patient is hemodynamically stable and wants to go home. Patient will be discharged to home and follow up with PCP within three days. Course/Dx - Course Course Of Treatment: Patient is received as a sign out from Dr. Nair to Dr. Blanco at 1900 11/14/18 shift change. Patient had an allergic reaction today, patient received as a sign-out for further management and pending disposition. 1946 - Patient is hemodynamically stable and wants to go home. Patient will be discharged to home and follow up with PCP within three days. - Diagnoses Provider Diagnoses: Allergic reaction Discharge - Sign-Out/Discharge Documenting (check all that apply): Patient Departure - discharge, Receiving Sign-Out Receiving patient FROM: Hamzah Nair Patient Received Moderate/Deep Sedation with Procedure: No - Discharge Plan Condition: Stable Disposition: HOME Patient Education Materials: Food Allergy (ED) Referrals: Sanford Mello MD [Primary Care Provider] - 3 Days Additional Instructions: Please take medications as prescribed. Follow up with your primary care provider in 2-3 days. RETURN TO THE EMERGENCY DEPARTMENT FOR ANY NEW OR WORSENING SYMPTOMS. - Attestation Statements Document Initiated by Scribe: Yes Documenting Scribe: SALIMA OLSON Provider For Whom Rg is Documenting (Include Credential): GONZALO BLANCO MD Scribe Attestation: ISALIMA, scribed for GONZALO BLANCO MD on 11/14/18 at 1952. Status of Scribe Document: Ready
[2018-11-14 19:34] VITALS: BP 110/67
== END 2018-11-14 19:55 | disposition home or self-care (01) ==
LOC: ED 16:18
DX: T78.40XA Allergy, unspecified, initial encounter (principal); X58.XXXA Exposure to other specified factors, initial encounter; Z91.010 Allergy to peanuts; Z91.018 Allergy to other foods; Z87.891 Personal history of nicotine dependence
CPT/HCPCS: 96361; 96374; 96375; 99282; A9270-GY; J1200

== ENCOUNTER 2019-04-03 12:39 | Emergency (ER) | payer OTHER ==
--- OUTSIDE RECORDS SUMMARY | 2019-04-03 12:47 | XMS REPORT | Continuity of Care Document ---
:1980 External Reference #:[id number] Author Name Radha Matthew NP (transmitted by agent of provider Pearl Noland) Address [address], [place] [address] Care Team Providers Name Role Phone Sanford Mello MD - Family Medicine Care Team Information Heel Turner Carlie Rios NP - Nurse Care Team Information Heel Turner [phone] Practitioner Problems Description No Information Available Social History Type Date Description Comments Sex Unknown Tobacco Use Start: Unknown Former Cigarette Smoker 2 cigarettes per day End: Unknown 1-5 Cigarettes Daily for one year, 20 years ago ETOH Use Drinks 4 Alcoholic 1-4 drinks per week Beverages Per Week ETOH Use Moderate previous "I have used a glass alcohol intake or two of wine as stress coping in the past" Recreational Drug Use Denies Drug Use denies current drug use Tobacco Use Start: Unknown Patient is a former End: Unknown smoker Recreational Drug Use Former use of recreational drugs Smoking Status Reviewed: 02/14/19 Patient is a former smoker Exercise Type/Frequency Does aerobics 2 times a 2-3 times per week - week 30-60 minutes Exercise Type/Frequency Strength Training 2 times per week - 30 Videos minutes Allergies, Adverse Reactions, Alerts Active Allergies Reaction Severity Comments Date Soybean Allergenic Hives, Itching, 01/13/2019 Extract Anaphylaxis, Sores in Mouth Peanut Allergenic Extract Facial swelling, Hives, 01/13/2019 Anaphylaxis, Sores in Mouth Cats Hives, Itching, "not my own cat" 01/13/2019 Asthma-like symptoms Medications Active Medications SIG Qnty Indications Ordering Provider Date Dha Take one tablet by Unknown 06/07/2017 mouth daily Cetirizine HCL 2 tabs by mouth Unknown 06/03/2017 10mg daily prn Chewtabs Benadryl Allergy Take as needed for Unknown 06/03/2017 25mg allergies Capsules Probiotic-10 Take one tablet by Unknown Capsules mouth daily Vitamin B6 1 by mouth every Unknown 50mg Tablets day prn nausea Epipen 2-Samson use as directed Unknown 0.3mg/0.3ML Solution [employer] six capsules by Unknown Capsule mouth daily Immunizations Description No Information Available Vital Signs Date Vital Result Comment 02/14/2019 9:45am Height 63 inches 5'3" Weight 141.00 lb Heart Rate 90 /min BP Systolic 102 mmHg BP Diastolic 63 mmHg O2 % BldC Oximetry 100 % BMI (Body Mass Index) 25.0 kg/m2 01/17/2019 7:53am Height 63 inches 5'3" Weight 140.00 lb Heart Rate 78 /min BP Systolic 108 mmHg BP Diastolic 70 mmHg Body Temperature 98.1 F O2 % BldC Oximetry 97 % BMI (Body Mass Index) 24.8 kg/m2 Results Test Date Facility Test Result H/L Range Note Lipid Profile 02/08/2019 [facility] Triglycerides 117 mg/dL 1 (Trig/Chol/HDL) [address] [place] [address] [phone] Cholesterol 194 mg/dL 2 HDL Cholesterol 67.6 mg/dL 3 LDL Cholesterol 103 mg/dL 4 Laboratory test 02/08/2019 [facility] CRP High 2.18 mg/L High <2.[address] [place] [address] [phone] Ferritin 44.1 ng/mL Normal 11-307 Thyroid 02/08/2019 [facility] Thyroid 0.15 Normal <9 Autoantibodies 101 Peroxidase IU/[place] [address] Antibodies [phone] Thyroglobulin Antibody II 0.0 IU/mL <4.0 Laboratory test 02/08/2019 [facility] Homocysteine 5 mcmol/L [address] [place] [address] [phone] Laboratory test 01/17/2019 [facility] CRP High <pending> finding [address] [place] [address] [phone] Copper, Serum <pending> Ferritin <pending> Laboratory test 01/17/2019 [facility] Homocysteine <pending> finding [address] [place] [address] [phone] Laboratory test 01/17/2019 [facility] Vitamin B6 <pending> finding [address] [place] [address] [phone] Ascorbic Acid (Vitamin C) <pending> Zinc Serum <pending> Vitamin E Level <pending> Vitamin A (Retinol) <pending> Vitamin B1 (Whole Blood) <pending> 1 Desirable: <150 Borderline High: 150-199 High: 200-499 Very High: >500 2 Desirable: <200 Borderline High: 200-239 High: >239 3 Low: <40 Desirable: 40-60 High: >60 4 Desirable: <100 Near Optimal: 100-129 Borderline High: 130-159 High: 160-189 Very High: >189 5 REFERENCE VALUE <=13 (Fasting) ADDITIONAL INFORMATION This test was developed and its performance characteristics determined by [facility] in a manner consistent with CLIA requirements. This test has not been cleared or approved by the U.S. Food and Drug Administration. Test Performed by: [facility] [place] [address] Human Resources Manager Manufacturing: Brendon Garza M.D. 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 02/14/2019 D89.40 Mast cell activation, unspecified Radha Matthew NP 01/17/2019 R53.82 Chronic fatigue, unspecified Radha Matthew NP 01/17/2019 F41.9 Anxiety disorder, unspecified Radha Matthew NP 01/17/2019 T78.1xxA Other adverse food reactions, not elsewhere Radha Matthew NP classified, initial encounter Plan of Treatment 02/14/2019 - Radha Matthew, NPE72.12 Methylenetetrahydrofolate reductase deficiencyFollow up:follow up as neededRecommendations:Continue methylated bvwskaG40.40 Mast cell activation, unspecifiedRecommendations:Possible [facility] Focus Nutrient dense diet Would add in Vitamin C, Vitamin D3 Continue Functional Status Description No Information Available Mental Status Description No Information Available Referrals Description No Information Available
[2019-04-03] MEDS ORDERED: Famotidine IV* 10 MG/ML 2 ML (20 mg) ONE (12:50)
--- NOTE | 2019-04-03 12:52 | ED ---
Allergic Reaction/Systemic - HPI Summary HPI Summary: This pt is a 39 Y/O F presenting to [facility] with a CC of an allergic reaction that started at 1210 today and has been worsening since. She states that she has an allergic reaction to soy and peanuts. She is unsure how she came into contact with peanuts or soy. Her states that she put on a wool sweater and then began having the reaction. She states that her throat is tightening and is having SOB with a cough and redness around her chest and throat. She states that her throat is currently hurting and she rates the pain a 4/10 in severity. She is currently 19 weeks . She states that she took a single pill of Benadryl [employer]SULTANT. She has an EpiPen at home but states that she was hesitant to use it. She has had a similar reaction in the past and needed 3 different shots of Epi. She states that she has no alleviating factors. She has a PMHx of asthma and HTN. - History of Current Complaint Chief Complaint: EDAllergicReaction Time Seen by Provider: 04/03/19 12:49 Hx Obtained From: Patient Onset/Duration: Sudden Onset, Started minutes ago - 30, Still Present, Worse Since - onset Timing: Constant Severity Initially: Mild Severity Currently: Moderate Pain Intensity: 4 Pain Scale Used: 0-10 Numeric Location: Discrete @ - Throat and chest Aggravating Factor(s): Other - Soy or peanuts, states that she put on a sweater and the reaction started. Alleviating Factor(s): Nothing Associated Signs And Symptoms: Positive: Negative - headaches, and chills., Cough Wheezing, Difficulty Breathing, Rash - erythema and itchy, Throat Tightening. Negative: Chest Pain, Nausea, Vomiting - Allergies/Home Medications Allergies/Adverse Reactions: Allergies Allergy/AdvReac Type Severity Reaction Status Date / Time cucumber Allergy See Comment Verified 11/14/18 16:26 green pepper Allergy See Comment Verified 11/14/18 16:26 peanut Allergy See Comment Verified 11/14/18 16:26 soy Allergy Difficulty Verified 11/14/18 16:26 Breathing/Wheezing Bee Stings Allergy Severe Anaphylatic Uncoded 08/20/18 16:30 Shock PMH/Surg Hx/FS Hx/Imm Hx Previously Healthy: Yes Endocrine/Hematology History: Denies: Hx Diabetes Cardiovascular History: Reports: Hx Hypotension, Other Cardiovascular Problems/ Disorders - Tacycardia when on prednisone Denies: Hx Hypercholesterolemia, Hx Hypertension Respiratory History: Reports: Hx Asthma, Hx Seasonal Allergies, Other Respiratory Problems/Disorders - Acute respiratory distress (allergic reaction) Denies: Hx Chronic Obstructive Pulmonary Disease (COPD) GI History: Reports: Other GI Disorders - GI upset with food allergies History: Reports: Other Problems/Disorders - recent UTI Musculoskeletal History: Comment Only: Other Musculoskeletal History - Having inflammatory muscle and joint problems Sensory History: Reports: Hx Contacts or Glasses Denies: Hx Legally Blind, Hx Deafness, Hx Hearing Aid Opthamlomology History: Reports: Hx Contacts or Glasses Denies: Hx Legally Blind Neurological History: Reports: Hx Migraine - While she was a teen, Hx Seizures - vagal seizures, one 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/02/16, neg work up Denies: Other Neuro Impairments/Disorders Psychiatric History: Reports: Hx Anxiety, Hx Depression, Hx Post Traumatic Stress Disorder - anxiety - Surgical History Surgery Procedure, Year, and Place: eustachian tube insertion when child Hx Anesthesia Reactions: No Infectious Disease History: No Infectious Disease History: Denies: Traveled Outside the [place] in Last 30 Days - Family History Known Family History: Positive: Hypertension, Other - Severe allergies Negative: Blood Disorder - Social History Occupation: Employed Full-time Lives: With Family Alcohol Use: Weekly Alcohol Amount: 1-2 per week Hx Substance Use: No Substance Use Type: Reports: None Substance Use Comment - Amount & Last Used: not since 2007 Hx Tobacco Use: Yes Smoking Status (MU): Former Smoker Type: Cigarettes Have You Smoked in the Last Year: No Review of Systems Negative: Chills ENT: Other - throat tightening Negative: Chest Pain Positive: Shortness Of Breath, Cough Negative: Vomiting, Nausea Positive: Rash - erythematous and itchy Negative: Headache All Other Systems Reviewed And Are Negative: Yes Physical Exam - Summary Physical Exam Summary: Constitutional: Moderate distress Skin: Warm, Dry, Urticarial to the chest HENT: Normocephalic; Atraumatic, hoarse voice Eyes: Conjunctiva normal Neck: Musculoskeletal ROM normal neck. (-) JVD, (-) Stridor, (-) Nuchal rigidity Cardio: Rhythm regular, rate tachycardic, Heart sounds normal; Intact distal pulses; Radial pulses are 2+ and symmetric. (-) Murmur Pulmonary/Chest wall: Effort normal. increased work of breath, (-) Wheezes, (-) Rales Abd: Soft, (-) tenderness, (-) Distension, (-) Guarding, (-) Rebound Musculoskeletal: (-) Edema Lymph: (-) Cervical adenopathy Neuro: Alert, Oriented x3 Triage Information Reviewed: Yes Vital Signs On Initial Exam: Initial Vitals Temp Pulse Resp BP Pulse Ox 97.8 F 162 20 135/73 100 04/03/19 12:40 04/03/19 12:40 04/03/19 12:40 04/03/19 12:40 04/03/19 12:40 Vital Signs Reviewed: Yes Procedures - Sedation Patient Received Moderate/Deep Sedation with Procedure: No Diagnostics - Vital Signs Vital Signs Temp Pulse Resp BP Pulse Ox 04/03/19 12:40 97.8 F 162 20 135/73 100 - Laboratory Lab Statement: Any lab studies that have been ordered have been reviewed, and results considered in the medical decision making process. Re-Evaluation - Re-Evaluation First Eval Re-Evaluation Time: 16:35 Change: Improved Comment: pt states she feels better. no itchiness of throat. is tachycardic but states she is always tachycardic after getting epi. will give 1 more L fluids Second Eval Re-Evaluation Time: 17:08 Comment: bedside US w FHR 143, good movement Allergic Reaction Course/Dx - Course Course Of Treatment: 39 y/o F at 19 weeks p/w anaphylaxis. - tachycardic to 130's, inc WOB, hives to chest, hoarse voice. - given epi 0.3, solumedrol 125, pepcid and 25 benadryl IV. - will give IVF, observe. Hx of similar in past requiring 3 epi's. Unclear trigger. - has epi pen at home - Diagnoses Differential Diagnosis/HQI/PQRI: Positive: Anaphylaxis Provider Diagnoses: Anaphylaxis Discharge ED - Sign-Out/Discharge Documenting (check all that apply): Patient Departure - Discharge - Discharge Plan Condition: Stable Disposition: HOME Patient Education Materials: Anaphylaxis (ED) Referrals: Sanford Mello MD [Primary Care Provider] - Additional Instructions: Carry an EPI-PEN (or similar device) WITH YOU AT ALL TIMES. You should keep one on your person at ALL TIMES. Keep one in your wallet, purse, or pocket, one at home, one at work, and one in your car. If you feel symptoms of another allergic reaction coming on- use the EPI-PEN IMMEDIATELY and then call 911. DO NOT WAIT TO INJECT YOURSELF IF YOU HAVE SYMPTOMS- THE DELAY COULD BE FATAL. IF YOU HAVE ANY DOUBT, it is better to inject yourself rather than wait. If you still have symptoms 5 minutes after giving yourself an EPI-PEN, give yourself a second epi-pen injection. Make sure to check the expiration dates on your epi- pen and refill them BEFORE they . - Billing Disposition and Condition Condition: STABLE Disposition: Home - Attestation Statements Document Initiated by Rg: Yes Documenting Scribe: Halina Bess Provider For Whom Rg is Documenting (Include Credential): Nash Arizmendi MD Scribe Attestation: I, Halina Bess, scribed for Nash Arizmendi MD on 04/03/19 at 2209. Scribe Documentation Reviewed: Yes Provider Attestation: The documentation as recorded by the bernieibAnil wilson Tiffany Liu accurately reflects the service I personally performed and the decisions made by Nash thakkar MD Status of Scribkatie Document: Viewed
[2019-04-03] MEDS ORDERED: methylPREDNISolone 125 MG* 2 ML VIAL IV ONE (12:53)
[2019-04-03] MEDS ORDERED: Famotidine IV* 10 MG/ML 2 ML (20 mg) IV SLOW PU ONE (12:53)
[2019-04-03] MEDS ORDERED: NS 0.9% 1000 ML** 1,000 ML IV.FLUID IV ONE (12:53)
[2019-04-03] MEDS ORDERED: EPINEPHRINE 1 MG/ML 1 ML VIAL IM ONE (12:53)
[2019-04-03] MEDS ORDERED: diPHENhydraMINE IV* 50 MG/ML 1 ml VIAL (BENADRYL) IV ONE (12:53)
[2019-04-03] MEDS ORDERED: NS 0.9% 1000 ML** 1,000 ML IV ONE (16:35)
[2019-04-03 17:17] VITALS: BP 115/74
== END 2019-04-03 17:11 | disposition home or self-care (01) ==
LOC: ED 12:39
DX: T78.2XXA Anaphylactic shock, unspecified, initial encounter (principal); O16.2 Unspecified maternal hypertension, second trimester; Z3A.19 19 weeks gestation of pregnancy; F41.9 Anxiety disorder, unspecified; F32.9 Major depressive disorder, single episode, unspecified; F43.10 Post-traumatic stress disorder, unspecified; Z87.891 Personal history of nicotine dependence
CPT/HCPCS: 96361; 96372; 96374; 96375; 99284

== ENCOUNTER 2019-08-23 10:01 | Inpatient (IN) | payer OTHER ==
[2019-08-23] MEDS ORDERED: Buffered Lidocaine 1% SYRIN* 1 ML/SYRINGE INTRADERM ONE (10:54)
[2019-08-23] MEDS ORDERED: Lactated Ringers 1000 ML Bag* 1,000 ML IV ONE ×2 (10:54→15:30)
--- NOTE | 2019-08-23 11:03 | HP ---
General Information - Reason for Visit Mrs. Curtis is a 39 y/o with a at 39 4/7 weeks EGA, complicated by PMHx of Mast cell activation syndrome, [place]. Various food allergies, Gestational diabetes diet controlled this and Advanced maternal age. - General Information Maternal Age: 39 Grav: 3 Para: 0 SAB: 2 IEA: 0 Estimated Due Date: 08/26/19 Determined By: LMP Gestational Age in Weeks/Days: 39 4/7 Maternal Blood Type and Rh: A Positive - Results this Serology/RPR Result: Non-Reactive Rubella Result: Immune HBsAg Result: Negative HIV Result: Negative GBS Culture Result: Negative Past Medical History Delivery History: See Records Pertinent Past Medical History: See Records Past Medical History Comment: Asthma Food Allergies Depression/Anxiety Mast cell activation syndrome Pertinent Past Surgical History: See Records Past Surgical History Comment: Dilation/Evacuation X 2 for Spontaneous abortions. Pertinent Family History: See Records - Antepartal Records Antepartal Records: Reviewed, Complicated by: - See Reason for visit. Review of Systems Constitutional: Comfortable CV Complaint: No Respiratory: Shortness of Breath: No Gastrointestinal: No Nausea/Vomiting, Normal Bowel Movement Genitourinary: No Dysuria, No Bleeding, No Leaking Fluid Musculoskeletal: No Complaint, No Epigastric Pain Neurological: No Headache, No Visual Changes Movement: Normal Exam Allergies/Adverse Reactions: Allergies bee venom protein (honey bee) Allergy (Severe, Verified 08/23/19 20:27) Anaphylatic Shock cat dander Allergy (Verified 05/13/19 12:06) Anaphylatic Shock coffee (Coffea arabica) Allergy (Verified 05/13/19 12:06) Anaphylatic Shock cucumber Allergy (Verified 11/14/18 16:26) See Comment no. 2 on the allergy scale green pepper Allergy (Verified 11/14/18 16:26) See Comment no. 2 on the allergy scale peanut Allergy (Verified 11/14/18 16:26) See Comment No 2. on the allergy scale soy Allergy (Verified 11/14/18 16:26) Difficulty Breathing/Wheezing Temp 98.7 BP 124/85 P 90's RR 12 POx 100% RA - Measurements Height: 5 ft 2 in Weight: 160 lb Weight in lbs: [id number] Body Mass Index (BMI): 29.2 Pre- Weight: 135 lb Weight Gained This : 25 lbs and 0 ozs - Exam Breast: Breast Exam Deferred CVA: No CVA Tenderness Extremities: No Edema Heart: Normal Rhythm/Heart Sounds HEENT: No Significant Findings Lungs: Clear Bilaterally Rectal: Rectal Exam Deferred Reflexes: DTR 2+ Thyroid: No Thyromegaly - Abdominal Exam Abdomen Exam: Non-Tender, Fundal Height Consistent with Dates - Ultrasound/Biophysical Profile Biophysical Profile: Normal Reactive NST Targeted Exam Findings See L&D Outpatient Visit Provider Note for Findings: N/A Cervical Exam: 1cm Effacement: 80% Station: -1 Presenting Part: Vertex Membrane Status: Intact EFM Findings - External Monitor Findings Baseline Heart Rate: 140 External Monitor Findings: Accelerations Present, No Pattern of Variable or Late Decelerations Contractions: Irregular, Mild, < 45 Seconds Assessment/Plan - Assessment Term with gestational diabetes A1, advanced maternal age, asthma and various food allergies with mast cell activation syndrome based on clinical presentation. - Obstetrical Risk Factors Obstetrical Risk Factors: Gestational Diabetes - Diet controlled, see chart, consults etc. - Plan Plan: Induction, IV Hydration, Admit - Anticipate Vaginal Delivery - Date/Time of Admission Date of Admission: 08/23/19 Time of Admission: 10:00
[2019-08-23] MEDS ORDERED: diPHENhydraMINE IV* 50 MG/ML 1 ml VIAL (BENADRYL) IV ONE (11:55)
[2019-08-23] MEDS ORDERED: methylPREDNISolone 125 MG* 2 ML VIAL IV ONE (11:56)
[2019-08-23 11:57] LABS: ABS Basophils 0.1 10^3/ul (0-0.2); ABS Eosinophils 0.1 10^3/ul (0-0.6); ABS Lymphocytes 1.4 10^3/ul (1.0-4.8); ABS Monocytes 0.6 10^3/ul (0-0.8); ABS Neutrophils 6.6 10^3/ul (1.5-7.7); Eosinophil % 1.4 %; Hematocrit 37 % (35-47); Lymphocyte % 15.6 %; Mean Corpuscular HGB Conc 36 g/dL (31-36); Mean Corpuscular Hemoglobin 32 pg (27-31); Mean Corpuscular Volume 91 fL (80-97); Mean Platelet Volume 9.4 fL (7.4-10.4); Platelet Count 216 10^3/uL (150-450); Red Blood Count 4.02 10^6 /uL (3.70-4.87); Red Cell Distribution Width 13 % (10-15); White Blood Count 8.7 10^3/uL (3.5-10.8)
[2019-08-23] MEDS ORDERED: OBEPIDURAL* 250 ML EPIDURAL ONE (12:05)
[2019-08-23 12:16] LABS: Urine Benzodiazepine Screen None Detected (None Detect); Urine Opiates Screen None Detected (None Detect)
[2019-08-23] MEDS ORDERED: Oxytocin in LR* 20 UNITS/1,000 ML BAG IVPB ONE (14:32)
[2019-08-23] MEDS ORDERED: Oxytocin in LR* 20 UNITS/1,000 ML BAG IVPB SCH ×2 (15:00→19:00)
[2019-08-23] MEDS ORDERED: Sodium Citrate/Citric Acid* 15 ML UDC PO PRN (15:30)
[2019-08-23] MEDS ORDERED: Famotidine TAB* 20 MG PO PRN (15:30)
[2019-08-23] MEDS ORDERED: EPHEDrine (Pressors)* 50 MG/ML VIAL IV PUSH PRN ×2 (15:36)
[2019-08-23] MEDS ORDERED: Phenylephrine 40 MCG/ML SYRINGE IV PUSH PRN ×2 (15:36)
[2019-08-23] MEDS ORDERED: Lactated Ringers 1000 ML Bag* 500 ML IV PRN (15:36)
[2019-08-23] MEDS ORDERED: Lactated Ringers 1000 ML Bag* 1,000 ML IV SCH ×2 (16:00)
[2019-08-23] MEDS ORDERED: OBEPIDURAL* 250 ML EPIDURAL SCH (16:00)
[2019-08-23] MEDS: Lactated Ringers 1000 ML Bag* 1,000 ML IV SCH ×2 (19:37→22:05)
[2019-08-23] MEDS ORDERED: diPHENhydraMINE IV* 50 MG/ML 1 ml VIAL (BENADRYL) IV PRN (20:21)
[2019-08-23] MEDS ORDERED: Famotidine IV* 10 MG/ML 2 ML (20 mg) ONE (21:42)
[2019-08-24] MEDS ORDERED: Carboprost Tromethamine* 250 MCG INJ ONE (03:09)
--- NOTE | 2019-08-24 04:04 | PROCNOTE ---
[facility] OB: Delivery Note - Delivery A Date of : 08/24/19 [place] Sex: Female [place] Weight at : 6 lb 5 oz Score 1 Minute: 8 Score 5 Minutes: 9 Gestational Age in Weeks and Days at Delivery: 39 Weeks and 5 Days Delivery Method: Spontaneous Vaginal Labor: Induced Did Patient attempt ?: N/A, No Previous Amniotic Fluid: Clear Anesthesia/Analgesia: CEI for Labor Delivered By: Derrick Casas - Perineum Perineal Injury: Left Mediolateral, Right Mediolateral, Perineal Laceration - 2nd degree Perineal Repair: By Delivering Practioner - Events Delivery Events of Note: None Apply
[2019-08-24] MEDS ORDERED: Glycerin ADULT SUPP PR PRN (04:06)
[2019-08-24] MEDS ORDERED: Lidocaine 1% INJ* 10 MG/ML 30 ML SDV ONE (04:46)
[2019-08-24] MEDS ORDERED: Lactated Ringers 1000 ML Bag* 1,000 ML IV SCH (05:00)
[2019-08-24] MEDS: Ibuprofen TAB* 600 MG PO PRN ×3 (05:37→17:49)
[2019-08-24] MEDS: Dibucaine 1% 28.35 GM TUBE PR PRN ×3 (05:38→19:52)
[2019-08-24] MEDS: Witch Hazel PAD* JAR TOPICAL PRN ×2 (05:38→19:53)
[2019-08-24] MEDS: Acetaminophen TAB* 325 MG PO PRN ×4 (06:45→20:10)
[2019-08-24] MEDS ORDERED: Simethicone TAB* 80 MG TAB.CHEW PO SCH (08:30)
[2019-08-24] MEDS: Cetirizine* 10 MG TAB PO SCH (09:19)
[2019-08-24] MEDS: Docusate CAP* 100 MG PO SCH ×3 (09:19→19:52)
[2019-08-24] MEDS ORDERED: methylPREDNISolone 125 MG* 2 ML VIAL IV ONE (10:59)
[2019-08-25] MEDS: Ibuprofen TAB* 600 MG PO PRN ×4 (00:12→18:04)
[2019-08-25] MEDS: Acetaminophen TAB* 325 MG PO PRN ×4 (00:13→20:22)
[2019-08-25 06:21] LABS: ABS Basophils 0.1 10^3/ul (0-0.2); ABS Eosinophils 0.4 10^3/ul (0-0.6); ABS Lymphocytes 2.1 10^3/ul (1.0-4.8); ABS Monocytes 0.8 10^3/ul (0-0.8); ABS Neutrophils 6.3 10^3/ul (1.5-7.7); Eosinophil % 4.1 %; Hematocrit 26 % (35-47); Hemoglobin 9.2 g/dL (12.0-16.0); Lymphocyte % 21.8 %; Mean Corpuscular HGB Conc 36 g/dL (31-36); Mean Corpuscular Hemoglobin 33 pg (27-31); Mean Corpuscular Volume 92 fL (80-97); Mean Platelet Volume 8.5 fL (7.4-10.4); Platelet Count 132 10^3/uL (150-450); Red Blood Count 2.77 10^6 /uL (3.70-4.87); Red Cell Distribution Width 13 % (10-15); White Blood Count 9.6 10^3/uL (3.5-10.8)
[2019-08-25] MEDS: Cetirizine* 10 MG TAB PO SCH (09:14)
[2019-08-25] MEDS: Docusate CAP* 100 MG PO SCH ×3 (09:14→20:22)
[2019-08-25] MEDS: Ferrous Gluconate TAB* 324 MG TAB PO SCH ×2 (09:14→20:22)
[2019-08-26] MEDS: Ibuprofen TAB* 600 MG PO PRN ×2 (00:05→05:56)
[2019-08-26] MEDS: Acetaminophen TAB* 325 MG PO PRN ×2 (00:07→05:56)
[2019-08-26 08:04] VITALS: BP 112/63
[2019-08-26] MEDS: Ferrous Gluconate TAB* 324 MG TAB PO SCH (08:37)
[2019-08-26] MEDS: Witch Hazel PAD* JAR TOPICAL PRN (08:37)
[2019-08-26] MEDS: Dibucaine 1% 28.35 GM TUBE PR PRN (08:37)
[2019-08-26] MEDS: Docusate CAP* 100 MG PO SCH (08:38)
[2019-08-26] MEDS: Cetirizine* 10 MG TAB PO SCH (08:38)
== END 2019-08-26 11:15 | disposition home or self-care (01) | DRG 807 ==
LOC: MCHOBOUT 10:01 → MCHOB 10:54
PROVIDERS: ADMIT Obstetrics & Gynecology; ATTEND Obstetrics & Gynecology
PROC: 4A1HXCZ Monitoring of Products of Conception, Cardiac Rate, External Approach (ICD-10-PCS; 2019-08-23)
PROC: 10E0XZZ Delivery of Products of Conception, External Approach (ICD-10-PCS; principal; 2019-08-24)
PROC: 0KQM0ZZ Repair Perineum Muscle, Open Approach (ICD-10-PCS; 2019-08-24)
PROC: 10907ZC Drainage of Amniotic Fluid, Therapeutic from Products of Conception, Via Natural or Artificial Opening (ICD-10-PCS; 2019-08-24)
PROC: 0W8NXZZ Division of Female Perineum, External Approach (ICD-10-PCS; 2019-08-24)
PROC: 3E033VJ Introduction of Other Hormone into Peripheral Vein, Percutaneous Approach (ICD-10-PCS; 2019-08-24)
DX: O24.420 Gestational diabetes mellitus in childbirth, diet controlled (principal); Z37.0 Single live birth; O70.1 Second degree perineal laceration during delivery; O99.52 Diseases of the respiratory system complicating childbirth; O71.82 Other specified trauma to perineum and vulva; J45.909 Unspecified asthma, uncomplicated; Z3A.39 39 weeks gestation of pregnancy; Z91.010 Allergy to peanuts; Z91.018 Allergy to other foods
CPT/HCPCS: 36415; 80307; 85025; 86850; 86900; 86901; A9270-GY; G0480; J1200; J2930